=== PATIENT | male | born 1945 | race Caucasian/White ===

== ENCOUNTER 2017-06-20 11:58 | Outpatient (CLI) | payer MEDICARE ==
--- NOTE | 2017-06-20 15:20 | ULT ---
SCROTAL ULTRASOUND WITH COLOR AND SPECTRAL DOPPLER IMAGING AND VASCULAR DUPLEX: History: 71-year-old male with bulge in the right groin. FINDINGS: The right testes measures 3.8 x 2.5 x 3.4 cm. The left testes measures 3.7 x 2.3 x 3.1 cm. Epididyma l head regions appear unremarkable with a 0.2 x 0.3 cm epididymal head cyst. A small amount of bilat eral hydrocele fluid. In the left groin in the region of clinical concern, there is evidence of left inguinal hernia which does appear to at least partially contain bowel. This hernia does not extend into the scrotum. Vascular duplex with color and spectral doppler imaging demonstrates arterial end flow and venous ou tflow to both testes. No evidence of testicular torsion. No testicular mass. IMPRESSION: Small bilateral hydroceles. Very small incidental epididymal cyst. No intratesticular mass or testic ular torsion. Evidence for left inguinal hernia containing bowel. This might be more completely assessed with a follow up pelvic CT scan. POS: [facility]
== END 2017-06-20 11:59 | disposition home or self-care (01) ==
LOC: ULT 11:58
PROVIDERS: ATTEND Family Medicine
DX: K40.90 Unilateral inguinal hernia, without obstruction or gangrene, not specified as recurrent (principal); R01.1 Cardiac murmur, unspecified; I08.3 Combined rheumatic disorders of mitral, aortic and tricuspid valves; I35.0 Nonrheumatic aortic (valve) stenosis; N43.3 Hydrocele, unspecified; N50.3 Cyst of epididymis
CPT/HCPCS: 76870; 93306; 93976

== ENCOUNTER 2017-12-13 09:28 | Outpatient (CLI) | payer MEDICARE ==
[2017-12-13] MEDS ORDERED: ISOVUE-370 76%-LOCM 1 ML ONE (16:11)
== END 2017-12-13 09:29 | disposition home or self-care (01) ==
LOC: BICCT 09:28
PROVIDERS: ATTEND Thoracic Surgery (Cardiothoracic Vascular Surgery)
DX: I65.23 Occlusion and stenosis of bilateral carotid arteries (principal); I65.01 Occlusion and stenosis of right vertebral artery; I70.8 Atherosclerosis of other arteries; Z86.73 Personal history of transient ischemic attack (TIA), and cerebral infarction without residual deficits; Z87.81 Personal history of (healed) traumatic fracture
CPT/HCPCS: 70498

== ENCOUNTER 2017-12-25 06:11 | Inpatient (IN) | payer MEDICARE ==
[2017-12-24 15:05] VITALS: BMI 32.2
[2017-12-25] MEDS ORDERED: Protamine Sulfate 50 MG/5 ML VIAL ONE (06:43)
[2017-12-25] MEDS ORDERED: Heparin 5,000 UNITS/ML VIAL ONE (06:43)
[2017-12-25 06:51] LABS: Hemoglobin 13.2 g/dL (14.0-18.0); Mean Corpuscular HGB CONC 34.6 g/dL (32.0-36.0); Mean Corpuscular Hemoglobin 35.8 pg (27.0-31.0); Mean Platelet Volume 7.6 fL (7.4-10.4); Platelet Count 139 thou/uL (130-400); RBC Distribution Width 13.6 % (11.5-14.5); White Blood Cell (WBC) Count 6.1 thou/uL (4.8-10.8)
[2017-12-25] MEDS ORDERED: Fentanyl 250 MCG/5 ML VIAL ONE (06:56)
[2017-12-25 07:07] LABS: Anion Gap 16 mmol/L (10-20); Calc. Creatinine Clearance 83 mL/min (70-130); Calcium 9.4 mg/dL (7.8-10.44); Carbon Dioxide 23 mmol/L (23-31); Chloride 104 mmol/L (98-107); Estimated GFR-MDRD 71; Glucose 86 mg/dL (80-115); Potassium 4.7 mmol/L (3.5-5.1); Sodium 138 mmol/L (136-145)
[2017-12-25] MEDS ORDERED: CEFAZOLIN/Water 2 GM/20 ML SYRINGE ONE (07:12)
[2017-12-25] MEDS ORDERED: Fentanyl 100 MCG/2 ML VIAL ONE (07:41)
[2017-12-25] MEDS ORDERED: Ondansetron HCl/PF 4 MG/2 ML Vial IVP PRN (07:57)
[2017-12-25] MEDS ORDERED: Acetaminophen 325 MG TAB PO PRN (07:57)
[2017-12-25] MEDS ORDERED: HYDROcodone/Acetaminophen 5/325 mg Tablet PO PRN ×2 (07:57)
[2017-12-25] MEDS ORDERED: Polyethylene Glycol 3350 17 GM Packet PO PRN (08:01)
[2017-12-25 08:07] LABS: BUN (Urea Nitrogen) 13 mg/dL (8.4-25.7)
--- NOTE | 2017-12-25 08:54 | RAD ---
RADIOGRAPH CHEST 2 VIEWS: HISTORY: A 72-year-old male for preoperative evaluation. FINDINGS: There is no air space density, pulmonary edema, pleural effusion, pneumothorax, or cardiomegaly. The re are at least 2 compression fractures of the mid and lower thoracic spine, of indeterminate age. T here are multiple left lateral displaced rib fracture deformities which are nonacute, with associated chronic left pleural changes. There are also nonacute fractures of the left clavicle and left scapu la. IMPRESSION: 1. No acute cardiopulmonary findings. 2. Multiple nonacute fractures of the left clavicle and left ribs. 3. Compression fractures in the mid and lower thoracic spine, of indeterminate age. jn [] POS: [facility]
[2017-12-25] MEDS ORDERED: Lisinopril 10 MG TAB PO SCH (09:00)
--- NOTE | 2017-12-25 11:37 | EKG ---
Test Reason : PREOP Blood Pressure : / mmHG Vent. Rate : 065 BPM Atrial Rate : 065 BPM P-R Int : 194 ms QRS Dur : 134 ms QT Int : 448 ms P-R-T Axes : 021 006 -10 degrees QTc Int : 465 ms Sinus rhythm with marked sinus arrhythmia and PAC's Right bundle branch block Lateral infarct , age undetermined Nonspecific ST-T changes Abnormal ECG No previous ECGs available Confirmed by DR. Dai YEBOAH ([id number]) on 12/25/2017 11:36:34 AM Referred By: MANOHAR Hernandez Confirmed By:DR. Dai YEBOAH
--- NOTE | 2017-12-25 12:53 | OP ---
DATE OF PROCEDURE: 12/25/2017 PROCEDURE PERFORMED: Right carotid endarterectomy. PREOPERATIVE DIAGNOSIS: Right carotid stenosis. POSTOPERATIVE DIAGNOSIS: Right carotid stenosis. SURGEON: Dillon Sanches M.D. ANESTHESIA: General endotracheal anesthesia. INDICATIONS: The patient is a 72-year-old man with coronary artery disease with asymptomatic carotid bruits. He was found to have modest left carotid stenosis, but a high grade right carotid suggested by ultrasonography and corroborated by CT angiography. He is now taken to the operating room for [facility] carotid endarterectomy. FINDINGS: I extensively calcified plaque throughout the cervical common carotid and extending 3 or 4 cm into the internal carotid with serial subtotal stenoses at the bulb and internal carotid and pers istent bleeding from the endarterectomy bed itself. Preshunt clamp time was 9 minutes. The shunt ti me was 34 minutes and post-shunt clamp time was 3 minutes. NARRATIVE REPORT: After informed consent was obtained, the patient was taken to the operating room a nd placed in supine position on the operating table. After the induction of general anesthesia, the patient's neck was extended and rotated towards the left. His right neck was then prepped and draped in sterile fashion. An oblique incision was made in the skin crease on the right neck using a scalp el and electrocautery. The dissection was carried through the platysma and anteromedial to the keane ocleidomastoid muscle and internal jugular vein. The common carotid artery was dissected free from t he sheath and the vagus nerve and looped with a vessel loop. The facial vein was ligated and divided . The dissection was carried distally because of bradycardia and lidocaine was infiltrated into the perivascular tissues at the bulb with relief of that bradycardia. The dissection was then carried on beyond the level of the hypoglossal nerve and digastric muscle, ansa cervicalis and sling vessels we re ligated and divided. The internal carotid was a large vessel with extensively calcified plaque ex tending 3-4 cm perhaps even more beyond the carotid bifurcation. When adequate exposure had been ach ieved, the patient was heparinized. The superior thyroidal and external carotid artery was looped an d mass with a vessel loop. After adequate circulation time of heparin, the internal carotid, common carotid at a relative soft spot and the external carotid systems were sequentially occluded. A longi tudinal arteriotomy was made in the distal common carotid artery and extended proximally and distally with Feliz scissors. An endarterectomy plane was developed at the bulb and the plaque was transecte d at the common carotid level. Plaque was everted from the external carotid system and then broken o ff distally in the internal carotid. The distal feather was tailored, forcefully irrigated and then tailored again. The proximal transection point was inspected. Verrucous plaque was crushed and debr ided from the common carotid and again irrigated and the intraluminal carotid shunt was inserted firs t distally in the internal carotid and proximally in the common carotid aspirating on the side port o f the shunt for allowing antegrade flow through it into the internal carotid system. A Ronald shunt c lamp was used to control backbleeding around the internal carotid limb of the shunt as well as to fac ilitate retention of this shunt intraluminally as the arteriotomy required was rather long. The bulb was further dissected out and clip applied what appeared to represent a small branch coming off of t he bulb, but there was persistent bleeding from what appeared ultimately to represent merely endarter ectomy bed at that level. This resulted in persistent oozing of blood throughout the case. The enda rterectomy bed was then serially inspected, debrided and forcefully irrigated until no more mobile de bris remained. The arteriotomy was then sewn from either apex with running 6-0 Prolene suture with a bout a centimeter of arteriotomy left so at the distal common carotid level. The shunt was clamped a nd removed and vascular control reestablished on the internal carotid at its origin and on the common carotid with vessel loops. The remaining arteriotomy was sewn. The vessels are forward and backble d to allow for flushing of any air or residual debris at the arteriotomy or into the external carotid system. The suture line was secured in antegrade flow into the external carotid and then into the i nternal carotid. One bleeding point along the suture line near the bulb was easily controlled with a [id number] Prolene suture. The wound was then inspected and packed off and after few minutes p acking removed and it appeared that hemostasis would be adequate without the reversal of heparin. To pical hemostatic agents were applied and the wound was again packed off. After few minutes, the pack ing was removed along with the Surgicel and hemostasis appeared to be adequate. The platysma was the n reapproximated with running 3-0 Vicryl and the skin was closed with a running 4-0 Vicryl, subcuticu lar suture and Steri-Strips. The wound was dressed. The patient is awake and extubated in the opera ting room and taken to the recovery area in stable condition and moving all extremities to command.
[2017-12-25] MEDS ORDERED: Glycopyrrolate 0.2 MG/ML 5 ML SYRINGE ONE (13:18)
[2017-12-25] MEDS ORDERED: Lidocaine 1% PF 5 ML VIAL ONE (13:18)
[2017-12-25] MEDS ORDERED: PHENYLEPHRINE-NS 100 MCG/ML 10 ML SYRINGE ONE (13:18)
[2017-12-25] MEDS ORDERED: Heparin 10,000 UNITS/ 10 ML VIAL ONE (13:18)
[2017-12-25] MEDS ORDERED: ePHEDrine/0.9% NaCl/PF SYRINGE 50 mg/10 ml ONE (13:18)
[2017-12-25] MEDS ORDERED: Esmolol 100 MG/10 ML VIAL ONE (13:18)
[2017-12-25] MEDS ORDERED: PROPOFOL 200 MG/20 ML VIAL ONE (13:18)
[2017-12-25] MEDS: Sodium Chloride 0.9% 1,000 ML IV SCH (15:32)
[2017-12-25] MEDS: hydrALAZINE 20 MG/ML VIAL SLOW IVP PRN ×2 (15:32→23:48)
[2017-12-25] MEDS ORDERED: Aspirin 81 mg Enteric Coated Tablet PO SCH (21:00)
[2017-12-25] MEDS ORDERED: Lisinopril 5 MG TAB PO SCH (21:00)
[2017-12-25] MEDS ORDERED: Finasteride 5 MG TAB PO SCH (21:00)
[2017-12-25] MEDS ORDERED: Divalproex Sodium DR 500 MG TAB PO SCH (21:00)
[2017-12-25] MEDS ORDERED: Cyanocobalamin (Vitamin B-12) 1,000 MCG TAB PO SCH (21:00)
[2017-12-25] MEDS ORDERED: Amlodipine 10 MG TAB PO SCH (21:00)
[2017-12-25] MEDS ORDERED: Ubidecarenone 50 MG CAP PO SCH (21:00)
[2017-12-25] MEDS ORDERED: Atorvastatin Calcium 40 MG TAB PO SCH (21:00)
[2017-12-25] MEDS ORDERED: Tamsulosin HCl 0.4 MG CAP PO SCH (21:00)
[2017-12-25] MEDS ORDERED: pyridOXINE 50 MG (B6) TAB PO SCH (21:00)
[2017-12-25 23:49] VITALS: BP 145/48
[2017-12-26] MEDS: Sodium Chloride 0.9% 1,000 ML IV SCH (01:45)
[2017-12-26 04:42] VITALS: TEMP 98
--- NOTE | 2017-12-26 06:48 | DIS ---
DATE OF ADMISSION: 12/25/2017 DATE OF DISCHARGE: 12/26/2017 PRINCIPAL DIAGNOSIS: Right carotid stenosis. PROCEDURE PERFORMED: Right carotid endarterectomy. HISTORY OF PRESENT ILLNESS AND HOSPITAL COURSE: The patient is a 72-year-old smoker with coronary ar nino disease who was found to have carotid disease on the evaluation of asymptomatic carotid bruits. Ultrasonography suggested high grade right carotid stenosis and more modest disease on the left. CT angiography corroborated that he was admitted for elective right carotid endarterectomy. The findin gs at the time of surgery included heavy calcification of the common carotid artery and of the inclusion intern al carotid artery extending 3 to 4 cm beyond the carotid bifurcation. The hard plaque was associated with multiple subtotal stenoses in the bulb and internal carotid artery. He had an uneventful posto p recovery initially in the recovery area and then overnight in the ICU. Today on postoperative day #1, he is neurologically intact, moving all extremities normally. His tongue is midline. His voice is normal. He is breathing and swallowing without any difficulty. There is no significant swelling associated with his incision, which is clean, dry, and intact. His blood pressure has been under tea quate control. He is now being discharged home with prescription for Vicodin as needed for pain and resume all of his home medications, which include an aspirin a day. I will plan on seeing him in the office in about 2 to 3 weeks for a wound check and we will enroll him in lifelong annual surveillanc e.
[2017-12-26] MEDS ORDERED: Folic Acid 1 MG TAB PO SCH (21:00)
== END 2017-12-26 10:07 | disposition home or self-care (01) | DRG 39 ==
LOC: SURG A 06:11 → CCU 13:35
PROVIDERS: ADMIT Thoracic Surgery (Cardiothoracic Vascular Surgery); ATTEND Thoracic Surgery (Cardiothoracic Vascular Surgery)
PROC: 03CH0ZZ Extirpation of Matter from Right Common Carotid Artery, Open Approach (ICD-10-PCS; principal; 2017-12-25)
PROC: 03CK0ZZ Extirpation of Matter from Right Internal Carotid Artery, Open Approach (ICD-10-PCS; 2017-12-25)
DX: I65.21 Occlusion and stenosis of right carotid artery (principal); F17.210 Nicotine dependence, cigarettes, uncomplicated; Z79.899 Other long term (current) drug therapy; Z79.82 Long term (current) use of aspirin; I25.10 Atherosclerotic heart disease of native coronary artery without angina pectoris; I10 Essential (primary) hypertension; J43.9 Emphysema, unspecified; G40.909 Epilepsy, unspecified, not intractable, without status epilepticus
CPT/HCPCS: 71046; 80048; 85027; 86850; 86900; 86901; 93005; 93010; 94640; A4216; J0360; J1642; J1644; J2001; J2405; J2704; J2720; J3010; J7620

== ENCOUNTER 2018-03-03 13:14 | Inpatient (IN) | payer MEDICARE ==
[~2018-03-03 13:14] MED LIST: ISOVUE-370 76%-LOCM 1 ML ONE
[2018-03-03 13:56] LABS: Hemoglobin 11.8 g/dL (14.0-18.0); Mean Corpuscular HGB CONC 35.2 g/dL (32.0-36.0); Mean Corpuscular Hemoglobin 33.2 pg (27.0-31.0); Mean Corpuscular Volume 94.3 fL (78.0-98.0); RBC Distribution Width 14.9 % (11.5-14.5); Red Blood Cell (RBC) Count 3.57 mill/uL (4.70-6.10); White Blood Cell (WBC) Count 5.6 thou/uL (4.8-10.8)
[2018-03-03 14:05] LABS: INR-International Normal Ratio 1.2
[2018-03-03 14:08] LABS: Bilirubin Negative (Negative); Blood, Urine Small (Negative); Clarity CLEAR (Clear); Glucose, Urine (Dipstick) Negative (Negative); Leukocyte Negative (Negative); Nitrite Negative (Negative); Protein, Urine (Dipstick) 100 mg/dL (Neg-Trace); Specific Gravity, Urine 1.006 (1.002-1.036); pH, Urine 6.5 (5.0-9.0)
[2018-03-03 14:10] LABS: Bacteria/HPF None Seen HPF (None Seen); Hyaline Casts/LPF 0-3 HYALINE CAST LPF (0-3 Hyaline); Pathc Cast-AUWi Flag 0.43 (0-2.49); RBC/HPF 0-3 HPF (0-3); Squamous Epithelial 0-3 HPF (0-3); WBC/HPF None Seen HPF (0-3)
[2018-03-03 14:15] LABS: ALT (SGPT) 13 U/L (8-55); AST (SGOT) 54 U/L (5-34); Albumin 3.6 g/dL (3.4-4.8); Alkaline Phosphatase 70 U/L (40-150); Anion Gap 17 mmol/L (10-20); BUN (Urea Nitrogen) 19 mg/dL (8.4-25.7); Bilirubin, Total 0.5 mg/dL (0.2-1.2); Calc. Creatinine Clearance 0 mL/min (70-130); Carbon Dioxide 22 mmol/L (23-31); Chloride 88 mmol/L (98-107); Estimated GFR-MDRD 79; Glucose 120 mg/dL (80-115); Potassium 4.8 mmol/L (3.5-5.1); Protein, Total 8.6 g/dL (5.8-8.1); Sodium 122 mmol/L (136-145)
[2018-03-03 14:17] LABS: CKMB 2.7 ng/mL (0-6.6); Troponin I 0.054 ng/mL (< 0.028)
[2018-03-03 14:18] LABS: Calcium 12.1 mg/dL (7.8-10.44)
[2018-03-03 14:25] LABS: #Lymphocytes 0.7 thou/uL (1.20-3.40); #Monocytes 0.5 thou/uL (0.11-0.59); #Neutrophils 4.4 thou/uL (1.40-6.50); %Basophils 0.1 % (0.0-1.0); %Eosinophils 0.3 % (0.0-10.0); %Lymphocytes 13.2 % (21.0-51.0); %Monocytes 9.3 % (0.0-10.0); %Neutrophils 77.1 % (42.0-75.0); Anisocytosis SLIGHT = 6-15 cells (100X) (0-5/hpf); MDiff Complete? YES; Mean Platelet Volume 6.8 fL (7.4-10.4); PLT Morphology Comment Appears Decreased; Platelet Count 103 thou/uL (130-400); Polychromasia SLIGHT = 2-3 cells (100X) (0-2/hpf)
--- NOTE | 2018-03-03 14:34 | RAD ---
FRONTAL VIEW CHEST: Date: 03/03/18 COMPARISON: 12/25/17. CLINICAL HISTORY: Weakness, dyspnea. FINDINGS: Mild eventration of left hemidiaphragm present with blunting of the left lateral costophrenic sulcus. There is remote appearing deformity of the left lateral chest wall, similar appearing. Right lung re veals mild interstitial prominence. Cardiomediastinal silhouette is stable. IMPRESSION: 1. Chronic post-traumatic deformity of the left chest with elevation of left hemidiaphragm. 2. No new lobar consolidation. POS: [facility]
--- NOTE | 2018-03-03 15:09 | CT ---
CTA THORAX UTILIZING IV CONTRAST AND 3D REFORMATTED IMAGING: INDICATIONS: A 72-year-old male with shortness of breath and hypoxemia. COMPARISON: 01/28/2018 FINDINGS: No central or segmental pulmonary embolus is present. There is stable scattered emphysema. There is fluid and debris seen within the bronchi of the right lower lobe, with some tree-in-bud nodu lar opacities seen within the medial aspect of the right lower lobe. No pleural effusion is evident. No pneumothorax is demonstrated. There are scattered vascular calcifications in the coronary arter ies and thoracic aorta. The visualized upper abdomen is unremarkable for acute abnormality. There is diffuse osteopenia. There is a stable wedge compression abnormality involving T11, T7 and T 8. There has been interval development of an acute wedge compression abnormality involving T12. Thi s was not present on the comparison exam. There are worsening patchy areas of osteolysis seen throug hout the thoracic spine, which have progressed from the prior exam. There is a destructive osteolyti c lesion involving the anterolateral right seventh rib. There are numerous other scattered areas of focal osteolysis involving the ribs bilaterally. There is a healed deformity involving the left ches t wall, which is stable. There is a healed deformity involving the left clavicle. IMPRESSION: 1. No central or segmental pulmonary embolus demonstrated. 2. Debris seen within the bronchi of the right lower lobe, with tree-in-bud nodularity, suspicious f or changes of aspiration or a bronchitis. 3. Numerous osteolytic lesions involving the ribs and thoracolumbar spine, which have progressed fro January 2018, suspicious for metastatic disease versus myeloma. There is a new pathologic fracture in volving the T12 level. Compression abnormalities involving T11, T8, and T7 appear similar appearing. CODE T POS: [facility]
[2018-03-03] MEDS ORDERED: Aspirin 325 MG TAB ONE (15:14)
[2018-03-03] MEDS ORDERED: Piperacillin/Tazobactam 4.5 GM VIAL ONE (15:34)
[2018-03-03 17:14] LABS: Magnesium 1.5 mg/dL (1.6-2.6); Phosphorus 3.7 mg/dL (2.3-4.7)
[2018-03-03 17:34] LABS: Troponin I 0.058 ng/mL (< 0.028)
[2018-03-03] MEDS ORDERED: Sodium Chloride 0.9% 1,000 ML IV SCH (17:48)
[2018-03-03] MEDS ORDERED: Ondansetron ODT 4 MG TAB SL PRN (17:48)
[2018-03-03] MEDS ORDERED: Ondansetron HCl/PF 4 MG/2 ML Vial IVP PRN ×2 (17:48→20:42)
[2018-03-03] MEDS: Sodium Chloride 0.9% 1,000 ML IV SCH (19:58)
[2018-03-03 20:33] LABS: Troponin I 0.066 ng/mL (< 0.028)
[2018-03-03] MEDS ORDERED: Calcium Carbonate 500 MG ChewTAB PO PRN (20:42)
[2018-03-03] MEDS ORDERED: Ondansetron ODT 4 MG TAB PO PRN (20:42)
[2018-03-03] MEDS ORDERED: Milk Of Magnesia 30 ML UDCUP PO PRN (20:42)
[2018-03-03] MEDS ORDERED: Bisacodyl 10 MG SUPP PR PRN (20:42)
[2018-03-03] MEDS ORDERED: Acetaminophen 325 MG TAB PO PRN (20:42)
[2018-03-03] MEDS ORDERED: Nitroglycerin 0.4 MG TAB (25 Tab Bottle) PO PRN (20:42)
[2018-03-03] MEDS ORDERED: cloNIDine 0.1 MG TAB PO PRN (20:57)
[2018-03-03] MEDS ORDERED: hydrALAZINE 20 MG/ML VIAL SLOW IVP PRN (20:57)
[2018-03-03] MEDS ORDERED: Tamsulosin HCl 0.4 MG CAP PO SCH (21:00)
[2018-03-03 21:56] LABS: Anion Gap 16 mmol/L (10-20); BUN (Urea Nitrogen) 14 mg/dL (8.4-25.7); Calc. Creatinine Clearance 86 mL/min (70-130); Calcium 11.5 mg/dL (7.8-10.44); Carbon Dioxide 23 mmol/L (23-31); Chloride 92 mmol/L (98-107); Estimated GFR-MDRD Greater than 90; Glucose 79 mg/dL (80-115); Potassium 4.9 mmol/L (3.5-5.1); Sodium 126 mmol/L (136-145)
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
[2018-03-03] MEDS ORDERED: Piperacillin/Tazobactam 4.5 GM in Sodium Chloride 0.9% 100 ML IVPB SCH (22:00)
[2018-03-03] MEDS: Piperacillin/Tazobactam 3.375 GM in Sodium Chloride 0.9% 100 ML IVPB SCH (22:13)
[2018-03-03] MEDS: pyridOXINE 50 MG (B6) TAB PO SCH (22:36)
[2018-03-03] MEDS: Divalproex Sodium DR 500 MG TAB PO SCH (22:37)
[2018-03-03] MEDS: Folic Acid 1 MG TAB PO SCH (22:38)
[2018-03-03] MEDS: Senokot S 8.6-50 MG TAB PO SCH (22:38)
[2018-03-03] MEDS: Famotidine 20 MG TAB PO SCH (22:38)
[2018-03-03] MEDS: Atorvastatin Calcium 40 MG TAB PO SCH (22:38)
[2018-03-03] MEDS: Heparin 5,000 UNITS/ML VIAL SC SCH (22:38)
[2018-03-03] MEDS: Ubidecarenone 50 MG CAP PO SCH (22:38)
[2018-03-03] MEDS: Finasteride 5 MG TAB PO SCH (22:38)
[2018-03-03] MEDS: HYDROcodone/Acetaminophen 5/325 mg Tablet PO PRN (23:12)
--- NOTE | 2018-03-04 02:50 | CON ---
DATE OF CONSULTATION: 03/03/2018 NEPHROLOGY CONSULTATION CONSULTING PHYSICIAN: Dr. Robison. REASON FOR CONSULTATION: Hyponatremia and hypercalcemia. REASON FOR ADMISSION: Near syncope. HISTORY OF PRESENT ILLNESS: This is a 72-year-old male with history of seizure disorder, hyperlipide shahrzad, hypertension, came to the hospital with weakness. Patient has been having falls recently and in continence and was evaluated today at the ER. Patient was feeling lightheaded. No history of any na usea, vomiting, diarrhea. Patient was found to have sodium of 122. His last sodium was 125 a month ago with the ER visit. He also was found to have hypercalcemia of 12.1. Nephrology is consulted. Alem fuentes is a poor historian. No nausea or vomiting reported. No fever or chills. No chest pain, pal pitation. PAST MEDICAL HISTORY: Positive for hypertension, hyperlipidemia, seizure disorder, carotid stenosis , BPH, and asthma PAST SURGICAL HISTORY: Shoulder surgery, knee surgery, carotid endarterectomy. HOME MEDICATIONS: Include aspirin, coenzyme Q10, potassium, divalproex, tamsulosin, atorvastatin, am lodipine, finasteride, lisinopril, ____, ProAir, hydrocodone, acetaminophen. ALLERGIES: No known drug allergies. SOCIAL HISTORY: No smoking, alcohol, or illicit drug abuse reported. FAMILY HISTORY: No history of any kidney disease. REVIEW OF SYSTEMS: The following complete review of systems was negative, unless otherwise mentioned in the HPI or below: Constitutional: Weight loss or gain, ability to conduct usual activities. Sk in: Rash, itching. Eyes: Double vision, pain. ENT/Mouth: Nose bleeding, neck stiffness, pain, te nderness. Cardiovascular: Palpitations, dyspnea on exertion, orthopnea. Respiratory: Shortness of breath, wheezing, cough, hemoptysis, fever, or night sweats. Gastrointestinal: Poor appetite, abdo tatum pain, heartburn, nausea, vomiting, constipation, or diarrhea. Genitourinary: Urgency, frequen cy, dysuria, nocturia. Musculoskeletal: Pain, swelling. Neurologic/Psychiatric: Anxiety, depressi on. Allergy/Immunologic: Skin rash, bleeding tendency. PHYSICAL EXAMINATION: GENERAL: Shows elderly male in no apparent distress. VITAL SIGNS: Temperature 98.7, pulse 108, respiratory rate 17, blood pressure 143/54. HEENT: Atraumatic, normocephalic. Oral mucosa dry. NECK: Supple, no masses. CARDIOVASCULAR: S1, S2 heard. Rate and rhythm regular. RESPIRATORY: Clear. GI: Abdomen is soft. MUSCULOSKELETAL: There is no edema. DERMATOLOGIC: No skin rash. NEUROLOGIC: He is awake, alert, cooperative, pleasant. PSYCHIATRIC: Not assessed. LABORATORY DATA: Hemoglobin is 11.8. Sodium 122, potassium 4.8, BUN is 19, creatinine is 0.9. PTH is 5.5. ASSESSMENT: 1. Hyponatremia most likely syndrome of inappropriate antidiuretic hormone secretion, check urine os molality and urine sodium. Agree with IV hydration for now. We will recheck sodium at 9:00 p.m. tociara gonzalez. 2. Metabolic acidosis. 3. Hypercalcemia. Agree with IV hydration and we will also consider calcitonin. 4. PTH level is low. Check vitamin D level and PTH-related peptide. 5. Anemia, mild. 6. Hypertension, stable. PLAN: Plan is to continue IV hydration. We will add calcitonin for hypercalcemia if needed and we w ill give tolvaptan if SIADH is established currently plan is to hydrate given history. Recheck urine studies. We will recommend age appropriate cancer screening. Thank you for the consult. We will follow. Plan discussed with Dr. Robison.
[2018-03-04] MEDS: Piperacillin/Tazobactam 3.375 GM in Sodium Chloride 0.9% 100 ML IVPB SCH ×3 (03:09→16:02)
[2018-03-04 04:46] LABS: #Lymphocytes 0.8 thou/uL (1.20-3.40); #Monocytes 0.6 thou/uL (0.11-0.59); #Neutrophils 3.5 thou/uL (1.40-6.50); %Basophils 0.4 % (0.0-1.0); %Eosinophils 0.3 % (0.0-10.0); %Lymphocytes 16.8 % (21.0-51.0); %Monocytes 12.8 % (0.0-10.0); %Neutrophils 69.7 % (42.0-75.0); Hemoglobin 9.6 g/dL (14.0-18.0); Mean Corpuscular HGB CONC 35.9 g/dL (32.0-36.0); Mean Corpuscular Hemoglobin 33.9 pg (27.0-31.0); Mean Corpuscular Volume 94.4 fL (78.0-98.0); Mean Platelet Volume 7.1 fL (7.4-10.4); Platelet Count 89 thou/uL (130-400); RBC Distribution Width 14.8 % (11.5-14.5); Red Blood Cell (RBC) Count 2.82 mill/uL (4.70-6.10)
[2018-03-04 05:14] LABS: Anion Gap 15 mmol/L (10-20); BUN (Urea Nitrogen) 15 mg/dL (8.4-25.7); Calc. Creatinine Clearance 77 mL/min (70-130); Calcium 11.3 mg/dL (7.8-10.44); Carbon Dioxide 24 mmol/L (23-31); Chloride 94 mmol/L (98-107); Estimated GFR-MDRD 81; Glucose 80 mg/dL (80-115); Potassium 4.2 mmol/L (3.5-5.1); Sodium 129 mmol/L (136-145)
[2018-03-04] MEDS ORDERED: Polyethylene Glycol 3350 17 GM Packet PO SCH (09:00)
[2018-03-04] MEDS: Famotidine 20 MG TAB PO SCH (09:05)
[2018-03-04] MEDS: Aspirin 81 mg Enteric Coated Tablet PO SCH (09:06)
[2018-03-04] MEDS: Heparin 5,000 UNITS/ML VIAL SC SCH ×2 (09:07→21:10)
[2018-03-04] MEDS: Senokot S 8.6-50 MG TAB PO SCH ×2 (09:08→21:09)
[2018-03-04 09:23] LABS: Ref Lab Test Ordered PTH RELATED PEPTIDE; Reference Lab Name LABCORP
[2018-03-04] MEDS: Sodium Chloride 0.9% 1,000 ML IV SCH ×2 (09:35→16:02)
[2018-03-04 09:36] LABS: Sodium 129 mmol/L (136-145)
--- NOTE | 2018-03-04 09:59 | RAD ---
ABDOMEN/KUB: Indication: Urinary incontinence. Constipation. FINDINGS: There is moderate retained fecal material in the colon. The lung bases reveal no consolidation. There is elevation of the left hemidiaphragm. Limited evaluation for free air by supine positioning. There is osseous degenerative change. IMPRESSION: Moderate retained fecal material throughout the colon. POS: [facility]
[2018-03-04] MEDS ORDERED: Vancomycin HCl 1 GM in Premix Bag 1 BAG IVPB SCH (12:00)
[2018-03-04] MEDS ORDERED: Lorazepam 2 MG/ML VIAL SLOW IVP SCH (12:00)
--- NOTE | 2018-03-04 12:05 | PRG ---
DATE OF SERVICE: 03/04/2018 SUBJECTIVE: Patient was seen and examined at bedside and overnight events noted. Patient denies any shortness of breath or chest pain or palpitation. No history of nausea or vomiting or diarrhea or fever or chills or cramps. OBJECTIVE: GENERAL: This is a well-built male in no apparent distress. VITAL SIGNS: Temperature 98.6, pulse 92, respirations 18, blood pressure 132/49. HEENT: Atraumatic, normocephalic. Oral mucosa is moist. NECK: Supple. CARDIOVASCULAR: S1 and S2 heard. Rate and rhythm regular. RESPIRATORY: Clear to auscultation. GASTROINTESTINAL: Abdomen is soft. MUSCULOSKELETAL: No tenderness. No edema. DERMATOLOGIC: No skin rash. NEUROLOGIC: Alert and awake and oriented x3. No focal neurologic deficits. Moving all the extremit ies. PSYCHIATRIC: Mood and affect normal. LABORATORY DATA: Potassium is 4.2, sodium 129, creatinine 0.9, calcium is 11.2. ASSESSMENT AND PLAN: 1. Hyponatremia, responding to IV fluids, suggesting hypovolemia even though clinical data shows asc ites. Patient had good correction level less than 24 hours, correction of 7 mEq per liter in less th an 24 hours. Plan is to stop the intravenous fluids at this point and check sodium at 24-hour monito r and we will make a clinical decision at that point. 2. Metabolic acidosis. 3. Hypercalcemia, better with IV hydration, but have to stop, because of the correction of hyponatre shahrzad. 4. Possible metastatic disease with bone metastasis. Follow up with Oncology. 6. Hypertension, stable. 7. We will recheck labs and we will decide based on the results.
[2018-03-04 13:25] LABS: Anion Gap 18 mmol/L (10-20); BUN (Urea Nitrogen) 17 mg/dL (8.4-25.7); Calc. Creatinine Clearance 58 mL/min (70-130); Calcium 11.5 mg/dL (7.8-10.44); Carbon Dioxide 20 mmol/L (23-31); Chloride 96 mmol/L (98-107); Estimated GFR-MDRD 59; Glucose 85 mg/dL (80-115); Potassium 4.6 mmol/L (3.5-5.1); Sodium 129 mmol/L (136-145)
[2018-03-04] MEDS: Vancomycin HCl 1.5 GM in Sodium Chloride 0.9% 250 ML 300 ML IVPB SCH (13:29)
--- NOTE | 2018-03-04 14:14 | PQF ---
CLINICAL DOCUMENTATION IMPROVEMENT CLARIFICATION FORM: ICD-10 Updated PLEASE DO AN ADDENDUM TO THE PROGRESS NOTE WITH ANY DOCUMENTATION UPDATES OR ADDITIONS AND CARRY THROUGH TO DC SUMMARY. THANK YOU. Date: 03/04/18 ATTN : DR. VILLALPANDO Please exercise your independent, professional judgment in responding to the clarification form. 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, 8% WEIGHT LOESS IN A FEW WEEKS." RISKS: ASPIRATION PNEUMONIA WORSENING WEAKNESS WITH DIZZINESS AND HYPONATREMIA TREATMENT: NUTRITIONAL SUPPLEMENTS DIETARY CONSULT SERIAL LABS TO MONITOR SODIUM AND MAGNESIUM PER DIETARY RECOMMENDATIONS Moderate Malnutrition (in acute illness) Energy Intake: <75% of estimated energy requirement for > 7 days Weight Loss: 1-2%/1 week; 5%/ 1 month; 7.5%/3 months Other: mild body fat loss; mild muscle mass loss; mild fluid accumulation; Severe Malnutrition (in acute illness) Energy Intake: < 50% of estimated energy requirement for > 5 days Weight Loss: >1-2%/1 week; >5%/1 month; >7.5%/3 months Other: moderate body fat loss; moderate muscle mass loss; moderate- severe fluid accumulation; 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 Moderate Malnutrition (in chronic illness) Energy Intake: <75% of estimated energy requirement for >1 month Weight Loss: 5%/1 month; 7.5%/3 months; 10%/6 months; 20%/1 year Other: mild body fat loss; mild muscle mass loss; mild fluid accumulation Severe Malnutrition (in chronic illness) Energy Intake: <75% of estimated energy requirement for >1 month Weight Loss: >5%/1 month; >7.5%/3 months; >10%/6 months; >20%/1 year Other: severe body fat loss; severe muscle mass loss; severe fluid accumulation ; 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 All Rights Reserved GINGER [email or web address] Office: [phone] [facility]
--- NOTE | 2018-03-04 14:53 | MRI ---
MRI LUMBAR SPINE WITHOUT CONTRAST: INDICATIONS: Urinary tract incontinence and low back pain. COMPARISON: Prior MRI lumbar spine dated 09/18/2004. TECHNIQUE: Multiplanar, multisequence MR images were obtained of the lumbar spine without IV contrast. Motion a rtifact limits image detail. FINDINGS: There is diffuse low signal intensity seen scattered within the sacrum, the lower thoracic spine, and the lumbar spine, consistent with diffuse osseous metastatic disease. There is an acute pathologic compression fracture involving the superior endplate of T12. There is chronic mild wedge compression abnormality of T11. Grade 1 anterolisthesis of L5 on S1 is stable. At L5-S1, there is a broad-based pseudo-bulge with facet hypertrophy, inducing moderate to severe rig ht and moderate left neural foraminal narrowing. The degree of neural foraminal narrowing is stable since 2004. At L4-L5, there is a broad-based bulge with facet hypertrophy, inducing moderate bilateral neural for aminal narrowing, which is stable. At L3-L4, there is a broad-based bulge with facet joint degenerative change without appreciable centr al canal narrowing but mild neural foraminal narrowing, which is stable. At L2-L3, there is a broad-based bulge, inducing mild bilateral neural foraminal narrowing, which is stable. At L1-L2, there is no appreciable central canal or neural foraminal narrowing. T12-L1: There is no appreciable central canal or neural foraminal narrowing. T11-T12: There is no appreciable neural foraminal narrowing. IMPRESSION: 1. Findings of diffuse metastatic disease involving the thoracolumbosacral spine with an acute wedge compression abnormality involving T12. 2. Stable multilevel neural foraminal narrowing. POS: [facility]
[2018-03-04 15:03] LABS: Sodium 129 mmol/L (136-145)
--- NOTE | 2018-03-04 15:10 | PDOC.PN ---
- Subjective Encounter Start Date: 03/04/18 Encounter Start Time: 10:30 Patient seen and examined for multiple issues. Feels better. No new focal deficits. No new complaints. No overnight events - Objective Resuscitation Status: Resuscitation Status FULL:Full Resuscitation MAR Reviewed: Yes Vital Signs & Weight: Vital Signs (12 hours) Temp Pulse Resp BP Pulse Ox 03/04/18 14:22 95 03/04/18 14:21 103 H 16 99 03/04/18 11:34 98.1 F 107 H 19 120/45 L 97 03/04/18 10:32 83 16 95 03/04/18 08:00 98.6 F 83 16 94 L 03/04/18 07:35 98.6 F 96 20 122/49 L 95 03/04/18 07:24 114 H 18 97 03/04/18 03:55 98.4 F 99 17 115/53 L 95 Weight Admit Weight 160 lb Weight 160 lb I&O: 03/03/18 03/04/18 03/05/18 06:59 06:59 06:59 Intake Total 876 Output Total 500 Balance 376 Result Diagrams: 03/04/18 03:30 03/04/18 14:34 Additional Labs: Microbiology 03/03/18 15:45 Venous blood - Left Hand Blood Culture - Preliminary Staphylococcus species 03/03/18 15:40 Venous blood - Left Arm Blood Culture - Preliminary Gram Positive Cocci 03/03/18 13:54 Urine voided Urine Culture - Preliminary NO GROWTH AT 12 HOURS Radiology Reviewed by me: Yes (KUB - fecal retention) EKG Reviewed by me: Yes (Tele SR) Phys Exam - Physical Examination Constitutional: NAD (at rest, Still has back pain) HEENT: PERRLA Neck: no JVD Respiratory: no wheezing Bibasilar rales with scat rhonchi, Symmetrical, No accessory muscle use Cardiovascular: RRR, no rub No heaves/pulsations Gastrointestinal: soft, non-tender, no distention, positive bowel sounds Musculoskeletal: no edema Neurological: moves all 4 limbs No new focal deficits. Psychiatric: normal affect, A&O x 3 Skin: no rash Dx/Plan - Plan plan discussed w/ family, continue antibiotics, psychologist social, speech therapy , respiratory therapy, DVT proph w/heparin, DVT proph w/SCDs IMPRESSION: 1. Generalized weakness with intractable back pain with loss of bladder control and difficulty ambulating. 2. Staph bacteremia 3. Electrolyte imbalance -severe hyponatremia and hypercalcemia. 4. Aspiration pneumonia. on Zosyn 5. Urinary incontinence x 1 week, multifactorial, suspected neurogenic. 6. Elevated troponins, probably secondary to demand ischemia. 7. 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 There is also a new pathologic fracture at T12 with compression abnormalities involving T12, T8, and T7 which appears similar to previous imaging. 8. Chronic anemia. 9. Hypertension. 10. Hyperlipidemia. 11. Seizure disorder - on Depakote 12. Decubitus ulcer, stage 2 over the gluteal region present on admission. 13. Thrombocytopenia. 14. Carotid stenosis status post recent right carotid endarterectomy. 15. Coronary artery disease, status post recent cardiac catheterization by Dr. Caballero. 16. Suspected chronic obstructive pulmonary disease. 17. Chronic pain syndrome on hydrocodone. 18. Moderate Protein Calorie Malnutrition. 19. Fecal impaction PLAN: * Cont Zosyn * Add Vancomycin * Cont Senokot-S and Miralax * PT/OT/ST * Await Oncology/NSG input * Consult ID * IVF dced due to sodium level of 129 from 122 * MRI pend * Change Flomax to BID (home dose) Review of Systems - Review of Systems Cardiovascular: negative: chest pain, palpitations, orthopnea, paroxysmal nocturnal dyspnea, edema, light headedness, other Gastrointestinal: negative: Nausea, Vomiting, Abdominal Pain, Diarrhea, Constipation, Melena, Hematochezia, Other - Medications/Allergies Allergies/Adverse Reactions: Allergies Allergy/AdvReac Type Severity Reaction Status Date / Time No Known Allergies Allergy Verified 03/03/18 19:17 Medications: Current Medications Acetaminophen (Tylenol) 650 mg PO Q4H PRN PRN Reason: Headache/Fever or Pain Hydrocodone Bitart/Acetaminophen ([place] 5/325) 1 tab PO Q4H PRN PRN Reason: Moderate Pain (4-6) Last Admin: 03/03/18 23:12 Dose: 1 tab Albuterol/Ipratropium (Duoneb) 3 ml NEB [id number] ESTLEA Last Admin: 03/04/18 14:21 Dose: 3 ml Albuterol/Ipratropium (Duoneb) 3 ml NEB Q2H PRN PRN Reason: SOB &/or Wheezing Aspirin (Ecotrin) 81 mg PO DAILY [facility] Last Admin: 03/04/18 09:06 Dose: 81 mg Atorvastatin Calcium (Lipitor) 40 mg PO QPM [facility] Last Admin: 03/03/18 22:38 Dose: 40 mg Bisacodyl (Dulcolax) 10 mg TN Q24H PRN PRN Reason: Constipation Calcium Carbonate (Tums) 1,000 mg PO Q4H PRN PRN Reason: Heartburn or Indigestion Clonidine (Catapres) 0.1 mg PO Q4H PRN PRN Reason: Systolic BP > 180 Coenzyme Q10 (Coenzyme Q10) 100 mg PO QPM [facility] Last Admin: 03/03/18 22:38 Dose: 100 mg Diltiazem HCl (Cardizem) 30 mg PO ACHS [facility] Last Admin: 03/04/18 13:29 Dose: 30 mg Divalproex Sodium (Depakote) 1,500 mg PO QPM [facility] Last Admin: 03/03/18 22:37 Dose: 1,500 mg Famotidine (Pepcid) 20 mg PO BID [facility] Last Admin: 03/04/18 09:05 Dose: 20 mg Finasteride (Proscar) 5 mg PO QPM [facility] Last Admin: 03/03/18 22:38 Dose: 5 mg Folic Acid (Folvite) 1 mg PO QPM [facility] Last Admin: 03/03/18 22:38 Dose: 1 mg Heparin Sodium (Porcine) (Heparin) 5,000 units SC BID [facility] Last Admin: 03/04/18 09:07 Dose: Not Given Hydralazine HCl (Apresoline) 5 mg SLOW IVP Q4H PRN PRN Reason: SBP Greater Than 180 Piperacillin Sod/Tazobactam (Sod 3.375 gm/ Sodium Chloride) 100 mls @ 200 mls/ hr IVPB 0300,0900,1500,2100 [facility] Last Admin: 03/04/18 09:08 Dose: 100 mls Vancomycin HCl 1.5 gm/ Sodium (Chloride) 300 mls @ 200 mls/hr IVPB 1400 [facility] Last Admin: 03/04/18 13:29 Dose: 300 mls Magnesium Hydroxide (Milk Of Magnesium) 30 ml PO DAILYPRN PRN PRN Reason: Constipation Miscellaneous Medication (Pharmacy To Dose) 1 each IVPB ASDIR [facility] Nitroglycerin (Nitrostat) 0.4 mg PO Q5MIN PRN PRN Reason: Chest Pain Ondansetron HCl (Zofran Odt) 4 mg PO Q6H PRN PRN Reason: Nausea/Vomiting Ondansetron HCl (Zofran) 4 mg IVP Q6H PRN PRN Reason: Nausea/Vomiting Polyethylene Glycol (Miralax) 17 gm PO DAILY [facility] Last Admin: 03/04/18 09:08 Dose: Not Given Pyridoxine HCl (Vitamin B 6) 100 mg PO QPM [facility] Last Admin: 03/03/18 22:36 Dose: 100 mg Senna/Docusate Sodium (Senokot S) 2 tab PO BID [facility] Last Admin: 03/04/18 09:08 Dose: Not Given Sodium Chloride (Flush - Normal Saline) 10 ml IVF Q12HR [facility] Sodium Chloride (Flush - Normal Saline) 10 ml IVF PRN PRN PRN Reason: Saline Flush Tamsulosin HCl (Flomax) 0.4 mg PO QPM [facility] Last Admin: 03/03/18 22:38 Dose: 0.4 mg
[2018-03-04] MEDS ORDERED: Dexamethasone 10 MG in Sodium Chloride 0.9% 50 ML IVPB SCH (15:30)
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
[2018-03-04] MEDS ORDERED: Dexamethasone 4 mg/ml Vial SLOW IVP SCH (18:00)
[2018-03-04] MEDS: Divalproex Sodium DR 500 MG TAB PO SCH (21:08)
[2018-03-04] MEDS: Ubidecarenone 50 MG CAP PO SCH (21:09)
[2018-03-04] MEDS: Finasteride 5 MG TAB PO SCH (21:09)
[2018-03-04] MEDS: Folic Acid 1 MG TAB PO SCH (21:09)
[2018-03-04] MEDS: Atorvastatin Calcium 40 MG TAB PO SCH (21:10)
[2018-03-04] MEDS: Tamsulosin HCl 0.4 MG CAP PO SCH (21:10)
[2018-03-04] MEDS: Polyethylene Glycol 3350 17 GM Packet PO SCH (21:11)
[2018-03-04] MEDS: Milk Of Magnesia 30 ML UDCUP PO SCH (21:11)
[2018-03-04] MEDS: pyridOXINE 50 MG (B6) TAB PO SCH (21:16)
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
[2018-03-05] MEDS: Piperacillin/Tazobactam 3.375 GM in Sodium Chloride 0.9% 100 ML IVPB SCH ×5 (02:06→21:04)
[2018-03-05 04:37] LABS: Anion Gap 16 mmol/L (10-20); BUN (Urea Nitrogen) 12 mg/dL (8.4-25.7); Calc. Creatinine Clearance 75 mL/min (70-130); Calcium 11.3 mg/dL (7.8-10.44); Carbon Dioxide 27 mmol/L (23-31); Chloride 95 mmol/L (98-107); Estimated GFR-MDRD 79; Glucose 85 mg/dL (80-115); Magnesium 1.4 mg/dL (1.6-2.6); Phosphorus 3.6 mg/dL (2.3-4.7); Potassium 3.5 mmol/L (3.5-5.1); Sodium 134 mmol/L (136-145)
[2018-03-05 05:18] LABS: Anisocytosis SLIGHT = 6-15 cells (100X) (0-5/hpf); Band 14 % (5-11); Lymphocytes 27 % (21-51); MDiff Complete? YES; Mean Corpuscular Hemoglobin 33.2 pg (27.0-31.0); Mean Platelet Volume 6.8 fL (7.4-10.4); Monocytes 10 % (0-10); Neutrophil 49 % (42-75); Nucleated RBC 1 % (0); PLT Morphology Comment Appears Decreased; Platelet Count 70 thou/uL (130-400); RBC Distribution Width 14.7 % (11.5-14.5); Red Blood Cell (RBC) Count 3.01 mill/uL (4.70-6.10); White Blood Cell (WBC) Count 4.4 thou/uL (4.8-10.8)
[2018-03-05] MEDS ORDERED: Magnesium Sulfate 4 GM in Sodium Chloride 0.9% 250 ML 250 ML IVPB SCH (09:15)
[2018-03-05] MEDS ORDERED: Zoledronic Acid 4 MG in Sodium Chloride 0.9% 100 ML IVPB SCH (10:15)
[2018-03-05] MEDS: Heparin 5,000 UNITS/ML VIAL SC SCH ×2 (10:34→21:04)
[2018-03-05] MEDS: Senokot S 8.6-50 MG TAB PO SCH ×2 (10:34→21:03)
[2018-03-05] MEDS: Polyethylene Glycol 3350 17 GM Packet PO SCH ×2 (10:35→21:04)
[2018-03-05] MEDS: Tamsulosin HCl 0.4 MG CAP PO SCH ×2 (10:35→21:03)
[2018-03-05] MEDS: Aspirin 81 mg Enteric Coated Tablet PO SCH (10:36)
[2018-03-05] MEDS: Famotidine 20 MG TAB PO SCH (10:36)
[2018-03-05] MEDS: Sodium Chloride 0.9% 1,000 ML IV SCH ×2 (10:37→11:23)
[2018-03-05] MEDS: Calcitonin,Salmon,Synthetic 200 Units 3.7 ML PUMP L NARE SCH (11:17)
--- NOTE | 2018-03-05 11:46 | PRG ---
Patient Name: JESSI RICE Date of service: 03/05/2018 Subjective: Patient was seen and examined at bedside and overnight events noted. Patient denies any shortness of breath or chest pain or palpitation. No history of nausea or vomiting or diarrhea or fever or chills or cramps. Objective: General: This is a thin-built male in no apparent distress. Vital signs: Temperature 97.9, pulse 111, respirations 20, blood pressure 135/60. HEENT: Atraumatic, normocephalic. Oral mucosa is moist. Neck: Supple. Cardiovascular: S1 S2 heard. Rate and rhythm regular. Respiratory: Clear to auscultation. Gastrointestinal: Abdomen is soft. Musculoskeletal: No tenderness. No edema. Dermatologic: No skin rash. Neurologic: Alert and awake and oriented X3. No focal neurologic deficits. Moving all the extremit ies. Psychiatric: Mood and affect normal. LABORATORY DATA: Potassium is 3.5, BUN 12, creatinine 0.9. His calcium is 11.3, sodium 131. ASSESSMENT AND PLAN: 1. Hyponatremia, much better with IV hydration. We will continue IV hydration for 1 more day. 2. Hypercalcemia, most likely malignancy related. Follow with Oncology. Plan is to give calcitonin , IV, subcu calcitonin not available. Plan is to give nasal spray, will also add ____ acid, follow u p SPEP results. 3. Metabolic acidosis. 4. Hypertension, stable. 5. Edema, controlled. Prognosis is guarded. Follow up with Oncology. Sodium level is better as well as calcium. We will continue to monitor.
[2018-03-05] MEDS ORDERED: Lorazepam 1 MG TAB PO SCH ×2 (12:30)
[2018-03-05 12:40] LABS: Creatinine, Urine 40.12 mg/dL (63-166)
--- NOTE | 2018-03-05 16:00 | MRI ---
MRI OF THE THORACIC SPINE WITHOUT CONTRAST: Date: 03/05/18 INDICATION: History of urinary incontinence and low back pain. COMPARISON: CTA of thorax dated 03/03/18. FINDINGS: There are wedge compression abnormalities of T7 and T8, likely chronic in nature. There are inferior end plate compression abnormalities of T10 and T11, which are also likely chronic. There is acute T12 and L1 compression abnormality present. No definite central canal or gross neural foraminal narrowin g is evident. IMPRESSION: 1. Acute wedge compression abnormalities of T12 and L1. 2. Remote appearing compression abnormalities involving T11, T10, T7, and T8. 3. Diffuse marrow signal abnormality involving thoracolumbar spine consistent with metastatic diseas e. POS: [facility]
[2018-03-05] MEDS: Vancomycin HCl 1.5 GM in Sodium Chloride 0.9% 250 ML 300 ML IVPB SCH (16:41)
[2018-03-05] MEDS: Folic Acid 1 MG TAB PO SCH (21:02)
[2018-03-05] MEDS: Atorvastatin Calcium 40 MG TAB PO SCH (21:02)
[2018-03-05] MEDS: Ubidecarenone 50 MG CAP PO SCH (21:03)
[2018-03-05] MEDS: Finasteride 5 MG TAB PO SCH (21:03)
[2018-03-05] MEDS: Divalproex Sodium DR 500 MG TAB PO SCH (21:03)
[2018-03-05] MEDS: Milk Of Magnesia 30 ML UDCUP PO SCH (21:04)
[2018-03-05] MEDS: pyridOXINE 50 MG (B6) TAB PO SCH (21:04)
[2018-03-06] MEDS: HYDROcodone/Acetaminophen 5/325 mg Tablet PO PRN ×2 (01:38→20:41)
[2018-03-06] MEDS: Piperacillin/Tazobactam 3.375 GM in Sodium Chloride 0.9% 100 ML IVPB SCH ×4 (03:17→20:30)
[2018-03-06 05:32] LABS: #Lymphocytes 0.8 thou/uL (1.20-3.40); #Monocytes 0.5 thou/uL (0.11-0.59); %Basophils 0.2 % (0.0-1.0); %Eosinophils 0.5 % (0.0-10.0); %Lymphocytes 15.6 % (21.0-51.0); %Neutrophils 74.7 % (42.0-75.0); Hemoglobin 9.3 g/dL (14.0-18.0); Mean Corpuscular Hemoglobin 33.4 pg (27.0-31.0); Mean Corpuscular Volume 95.5 fL (78.0-98.0); Mean Platelet Volume 7.3 fL (7.4-10.4); Platelet Count 67 thou/uL (130-400); RBC Distribution Width 14.8 % (11.5-14.5); Red Blood Cell (RBC) Count 2.79 mill/uL (4.70-6.10); White Blood Cell (WBC) Count 5.3 thou/uL (4.8-10.8)
[2018-03-06 05:44] LABS: Anion Gap 17 mmol/L (10-20); BUN (Urea Nitrogen) 11 mg/dL (8.4-25.7); Calc. Creatinine Clearance 69 mL/min (70-130); Carbon Dioxide 26 mmol/L (23-31); Chloride 97 mmol/L (98-107); Estimated GFR-MDRD 71; Glucose 82 mg/dL (80-115); Magnesium 2.2 mg/dL (1.6-2.6); Potassium 3.8 mmol/L (3.5-5.1); Sodium 136 mmol/L (136-145)
[2018-03-06] MEDS ORDERED: Diltiazem 125 MG in Sodium Chloride 0.9% 100 ML IVPB SCH (07:45)
[2018-03-06] MEDS: Famotidine 20 MG TAB PO SCH (09:12)
[2018-03-06] MEDS: Aspirin 81 mg Enteric Coated Tablet PO SCH (09:13)
[2018-03-06] MEDS: Tamsulosin HCl 0.4 MG CAP PO SCH ×2 (09:13→20:32)
[2018-03-06] MEDS: Calcitonin,Salmon,Synthetic 200 Units 3.7 ML PUMP L NARE SCH (09:14)
[2018-03-06] MEDS: Heparin 5,000 UNITS/ML VIAL SC SCH (09:14)
[2018-03-06] MEDS: Senokot S 8.6-50 MG TAB PO SCH ×2 (09:16→20:31)
[2018-03-06] MEDS: Polyethylene Glycol 3350 17 GM Packet PO SCH ×2 (09:16→20:30)
--- NOTE | 2018-03-06 11:34 | PDOC.PN ---
- Subjective Encounter Start Date: 03/05/18 Encounter Start Time: 11:00 Patient seen and examined for Sepsis/Bacteremia. Late entry from 03/05. Feels better. Back pain persists. No overnight events - Objective Resuscitation Status: Resuscitation Status FULL:Full Resuscitation MAR Reviewed: Yes Vital Signs & Weight: Vital Signs (12 hours) Temp Pulse Resp BP Pulse Ox 03/06/18 11:22 97.6 F 171 H 19 114/67 100 03/06/18 10:59 170 H 03/06/18 08:00 97.6 F 178 H 18 95 03/06/18 07:31 97.6 F 106 H 18 165/77 H 100 03/06/18 07:25 99 03/06/18 07:24 180 H 16 99 03/06/18 03:41 97.1 F L 103 H 14 151/69 H 100 03/06/18 02:44 96 18 97 03/06/18 00:00 97.3 F L 99 18 154/74 H 100 Weight Admit Weight 160 lb Weight 160 lb I&O: 03/05/18 03/06/18 03/07/18 06:59 06:59 06:59 Intake Total 1352.5 240 Output Total 500 Balance 852.5 240 Result Diagrams: 03/06/18 04:21 03/06/18 04:21 Radiology Reviewed by me: Yes (MRI thoracic spine - Mets) EKG Reviewed by me: Yes (Tele SR) Phys Exam - Physical Examination Constitutional: NAD Respiratory: no wheezing, no rhonchi Cardiovascular: RRR, no rub Gastrointestinal: soft, non-tender, positive bowel sounds Musculoskeletal: no edema Neurological: non-focal, moves all 4 limbs Psychiatric: A&O x 3 Dx/Plan - Plan DVT proph w/SCDs IMPRESSION: 1. Generalized weakness with intractable back pain with loss of bladder control and difficulty ambulating. 2. Staph bacteremia 3. Electrolyte imbalance -severe hyponatremia and hypercalcemia. 4. Aspiration pneumonia. on Zosyn 5. Urinary incontinence x 1 week, multifactorial, suspected neurogenic. 6. Elevated troponins, probably secondary to demand ischemia. 7. 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 There is also a new pathologic fracture at T12 with compression abnormalities involving T12, T8, and T7 which appears similar to previous imaging. 8. Chronic anemia. 9. Hypertension. 10. Hyperlipidemia. 11. Seizure disorder - on Depakote 12. Decubitus ulcer, stage 2 over the gluteal region present on admission. 13. Thrombocytopenia. 14. Carotid stenosis status post recent right carotid endarterectomy. 15. Coronary artery disease, status post recent cardiac catheterization by Dr. Caballero. 16. Suspected chronic obstructive pulmonary disease. 17. Chronic pain syndrome on hydrocodone. 18. Moderate Protein Calorie Malnutrition. 19. Fecal impaction PLAN: * Cont Zosyn and Vancomycin * PT/OT/ST * s/p Calcitonin and Zoledronic acid * Cont current meds as below * Cont Flomax to BID (home dose) Review of Systems - Review of Systems Respiratory: negative: Cough, Dry, Shortness of Breath, Hemoptysis, SOB with Excertion, Pleuritic Pain, Sputum, Wheezing Cardiovascular: negative: chest pain, palpitations, orthopnea, paroxysmal nocturnal dyspnea, edema, light headedness, other - Medications/Allergies Allergies/Adverse Reactions: Allergies Allergy/AdvReac Type Severity Reaction Status Date / Time No Known Allergies Allergy Verified 03/03/18 19:17 Medications: Current Medications Acetaminophen (Tylenol) 650 mg PO Q4H PRN PRN Reason: Headache/Fever or Pain Hydrocodone Bitart/Acetaminophen ([place] 5/325) 1 tab PO Q4H PRN PRN Reason: Moderate Pain (4-6) Last Admin: 03/06/18 01:38 Dose: 1 tab Albuterol/Ipratropium (Duoneb) 3 ml NEB [id number] [facility] Last Admin: 03/06/18 10:59 Dose: Not Given Albuterol/Ipratropium (Duoneb) 3 ml NEB Q2H PRN PRN Reason: SOB &/or Wheezing Aspirin (Ecotrin) 81 mg PO DAILY [facility] Last Admin: 03/06/18 09:13 Dose: 81 mg Atorvastatin Calcium (Lipitor) 40 mg PO QPM [facility] Last Admin: 03/05/18 21:02 Dose: 40 mg Bisacodyl (Dulcolax) 10 mg [place] Q24H PRN PRN Reason: Constipation Calcium Carbonate (Tums) 1,000 mg PO Q4H PRN PRN Reason: Heartburn or Indigestion Clonidine (Catapres) 0.1 mg PO Q4H PRN PRN Reason: Systolic BP > 180 Coenzyme Q10 (Coenzyme Q10) 100 mg PO QPM [facility] Last Admin: 03/05/18 21:03 Dose: 100 mg Divalproex Sodium (Depakote) 1,500 mg PO QPM [facility] Last Admin: 03/05/18 21:03 Dose: 1,500 mg Famotidine (Pepcid) 20 mg PO DAILY [facility] Last Admin: 03/06/18 09:12 Dose: 20 mg Finasteride (Proscar) 5 mg PO QPM [facility] Last Admin: 03/05/18 21:03 Dose: 5 mg Folic Acid (Folvite) 1 mg PO QPM [facility] Last Admin: 03/05/18 21:02 Dose: 1 mg Heparin Sodium (Porcine) (Heparin) 5,000 units SC BID [facility] Last Admin: 03/06/18 09:14 Dose: 5,000 units Hydralazine HCl (Apresoline) 5 mg SLOW IVP Q4H PRN PRN Reason: SBP Greater Than 180 Piperacillin Sod/Tazobactam (Sod 3.375 gm/ Sodium Chloride) 100 mls @ 200 mls/ hr IVPB 0300,0900,1500,2100 [facility] Last Admin: 03/06/18 09:13 Dose: 100 mls Vancomycin HCl 1.5 gm/ Sodium (Chloride) 300 mls @ 200 mls/hr IVPB 1400 [facility] Last Admin: 03/05/18 16:41 Dose: 300 mls Sodium Chloride (Normal Saline 0.9%) 1,000 mls @ 50 mls/hr IV .Q20H [facility] Last Admin: 03/05/18 10:37 Dose: 1,000 mls Diltiazem HCl 125 mg/ Sodium (Chloride) 125 mls @ 5 mls/hr IVPB INF [facility]; 5 MG/ HR PRN Reason: Protocol Last Admin: 03/06/18 08:13 Dose: 125 mls Magnesium Hydroxide (Milk Of Magnesium) 30 ml PO DAILYPRN PRN PRN Reason: Constipation Miscellaneous Medication (Pharmacy To Dose) 1 each IVPB ASDIR [facility] Nitroglycerin (Nitrostat) 0.4 mg PO Q5MIN PRN PRN Reason: Chest Pain Ondansetron HCl (Zofran Odt) 4 mg PO Q6H PRN PRN Reason: Nausea/Vomiting Ondansetron HCl (Zofran) 4 mg IVP Q6H PRN PRN Reason: Nausea/Vomiting Polyethylene Glycol (Miralax) 17 gm PO BID [facility] Last Admin: 03/06/18 09:16 Dose: Not Given Pyridoxine HCl (Vitamin B 6) 100 mg PO QPM [facility] Last Admin: 03/05/18 21:04 Dose: 100 mg Senna/Docusate Sodium (Senokot S) 2 tab PO BID [facility] Last Admin: 03/06/18 09:16 Dose: Not Given Sodium Chloride (Flush - Normal Saline) 10 ml IVF Q12HR [facility] Last Admin: 03/06/18 09:15 Dose: 10 ml Sodium Chloride (Flush - Normal Saline) 10 ml IVF PRN PRN PRN Reason: Saline Flush Tamsulosin HCl (Flomax) 0.4 mg PO BID [facility] Last Admin: 03/06/18 09:13 Dose: 0.4 mg
--- NOTE | 2018-03-06 11:48 | PDOC.EVN ---
Event Note - Event Note Event Note: Event note - RN called - Patient converted to Afib with RVR - Will start IV Cardizem drip after bolus
--- NOTE | 2018-03-06 13:09 | PRG ---
DATE OF SERVICE: 03/06/2018 SUBJECTIVE: Patient was seen and examined at bedside and overnight events noted. Patient denies any shortness of breath or chest pain or palpitation. No history of nausea or vomiting or diarrhea or f ever or chills or cramps. OBJECTIVE: GENERAL: Elderly male in no apparent distress. VITAL SIGNS: Temperature 97.6, pulse 106, respiratory rate 18, and blood pressure 165/77. HEENT: Atraumatic, normocephalic, Oral mucosa is moist. Neck: Supple. Cardiovascular: S1 and S2 heard. Rate and rhythm regular. Respiratory: Clear to auscultation. Gastrointestinal: Abdomen is soft. Musculoskeletal: No tenderness, No edema. Dermatologic: No skin rash. Neurologic: Alert and awake and oriented x3. No focal neurologic deficits. Moving all the extremit ies. Psychiatric: Mood and affect normal. LABORATORY DATA: Potassium is 3.8, sodium is 136, BUN is 11, creatinine is 1.03, calcium is 11. ASSESSMENT AND PLAN: 1. Hyponatremia, better stable. 2. Hypercalcemia getting better. He had a dose of Zometa yesterday. Follow up with Oncology. 3. . 4. Metabolic acidosis. 5. Hypertension, stable. 6. Edema, controlled. 7. Anemia, most likely secondary to myeloma. 8. Follow with SPEP results, add dose of calcitonin and Zometa. We will follow.
[2018-03-06] MEDS ORDERED: Amiodarone In Dextrose 200 ML IVPB SCH (13:30)
[2018-03-06] MEDS ORDERED: Amiodarone HCl 150 MG, Admixture Fee 1 EACH in Dextrose 5% in Water 100 ML IVPB SCH (13:30)
[2018-03-06] MEDS: Amiodarone HCl 450 MG, Admixture Fee 1 EACH in Dextrose 5% in Water 250 ML IVPB SCH ×2 (13:47→21:26)
[2018-03-06 14:00] LABS: ALT (SGPT) 13 U/L (8-55); AST (SGOT) 49 U/L (5-34); Albumin 3.4 g/dL (3.4-4.8); Alkaline Phosphatase 65 U/L (40-150); Bilirubin, Direct 0.3 mg/dL (0.1-0.3); Bilirubin, Total 0.5 mg/dL (0.2-1.2); Protein, Total 7.7 g/dL (5.8-8.1)
[2018-03-06] MEDS: Vancomycin HCl 1.75 GM in Sodium Chloride 0.9% 500 ML IVPB SCH (15:44)
[2018-03-06 16:18] LABS: A/G Ratio 0.7 (0.7-1.7); Alpha 1 0.4 g/dL (0.0-0.4); Alpha 2 0.8 g/dL (0.4-1.0); Beta 2.6 g/dL (0.7-1.3); Gamma 0.6 g/dL (0.4-1.8); Globulin, Total 4.3 g/dL (2.2-3.9); M-Spike 1.9 g/dL (Not Observed)
[2018-03-06] MEDS: Vancomycin HCl 1.5 GM in Sodium Chloride 0.9% 250 ML 300 ML IVPB SCH (16:42)
[2018-03-06 17:15] LABS: Alpha 1 - Ur 5.2 % (.); Alpha 2 - Ur 4.9 % (.); Beta-Ur 12.5 % (.); Gamma-Ur 30.4 % (.); M-Spike,% 27.5 % (Not Observed); Protein, Urine 148.5 mg/dL (Not Estab.)
[2018-03-06] MEDS: Sodium Chloride 0.9% 1,000 ML IV SCH (20:22)
[2018-03-06] MEDS: Atorvastatin Calcium 40 MG TAB PO SCH (20:28)
[2018-03-06] MEDS: Divalproex Sodium DR 500 MG TAB PO SCH (20:29)
[2018-03-06] MEDS: Folic Acid 1 MG TAB PO SCH (20:30)
[2018-03-06] MEDS: Finasteride 5 MG TAB PO SCH (20:30)
[2018-03-06] MEDS: pyridOXINE 50 MG (B6) TAB PO SCH (20:31)
[2018-03-06] MEDS: Ubidecarenone 50 MG CAP PO SCH (20:32)
--- NOTE | 2018-03-06 22:45 | PDOC.PN ---
- Subjective Encounter Start Date: 03/06/18 Encounter Start Time: 13:00 Patient seen and examined for multiple med issues. Converted to Afib with RVR. No CP No new complaints. No overnight events - Objective Resuscitation Status: Resuscitation Status FULL:Full Resuscitation MAR Reviewed: Yes Vital Signs & Weight: Vital Signs (12 hours) Temp Pulse Pulse Pulse Resp BP BP 03/06/18 21:55 105 H 18 03/06/18 19:31 97.8 F 106 H 20 03/06/18 18:23 103 H 18 03/06/18 15:30 98.2 F 102 H 20 03/06/18 14:03 186 H 109 H 94/62 133/59 L 03/06/18 13:53 194 H 03/06/18 11:22 97.6 F 171 H 19 03/06/18 10:59 170 H BP Pulse Ox Pulse Ox Pulse Ox 03/06/18 21:55 96 03/06/18 19:31 154/55 H 98 03/06/18 18:23 98 03/06/18 15:30 137/50 L 94 L 03/06/18 14:03 93 L 96 03/06/18 13:53 03/06/18 11:22 114/67 100 03/06/18 10:59 Weight Admit Weight 160 lb Weight 160 lb I&O: 03/05/18 03/06/18 03/07/18 06:59 06:59 06:59 Intake Total 1352.5 240 Output Total 500 Balance 852.5 240 Result Diagrams: 03/06/18 04:21 03/06/18 04:21 Radiology Reviewed by me: Yes (Tele Afib with RVR) EKG Reviewed by me: Yes Phys Exam - Physical Examination Constitutional: NAD Respiratory: no wheezing Bibasilar rales/rhonchi, Symmetrical Cardiovascular: no rub, irregular tachycardic Gastrointestinal: soft, non-tender, no distention, positive bowel sounds Musculoskeletal: no edema Neurological: moves all 4 limbs No new focal deficits Dx/Plan - Plan DVT proph w/SCDs IMPRESSION: 1. Generalized weakness with intractable back pain with loss of bladder control and difficulty ambulating. 2. Staph bacteremia 3. Electrolyte imbalance -severe hyponatremia and hypercalcemia s/p Calcitonin/ Zometa. 4. Aspiration pneumonia. on Zosyn 5. New onset Afib with RVR - prob not a candidate for anticoag 6. Elevated troponins, probably secondary to demand ischemia. 7. 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 There is also a new pathologic fracture at T12 with compression abnormalities involving T12, T8, and T7 which appears similar to previous imaging. 8. Other issues per previous notes PLAN: * Case d/w Cardiology * Rate not adequately controlled despite Cardizem drip - Will change to Amiodarone per Cardiology * Await PEP * Cont Vancomycin * Pain control * AM labs * Cont current meds as below Review of Systems - Review of Systems Respiratory: negative: Cough, Dry, Shortness of Breath, Hemoptysis, SOB with Excertion, Pleuritic Pain, Sputum, Wheezing Cardiovascular: palpitations. negative: chest pain, orthopnea, paroxysmal nocturnal dyspnea, edema, light headedness, other - Medications/Allergies Allergies/Adverse Reactions: Allergies Allergy/AdvReac Type Severity Reaction Status Date / Time No Known Allergies Allergy Verified 03/03/18 19:17 Medications: Current Medications Acetaminophen (Tylenol) 650 mg PO Q4H PRN PRN Reason: Headache/Fever or Pain Hydrocodone Bitart/Acetaminophen ([place] 5/325) 1 tab PO Q4H PRN PRN Reason: Moderate Pain (4-6) Last Admin: 03/06/18 20:41 Dose: 1 tab Albuterol/Ipratropium (Duoneb) 3 ml NEB [id number] [facility] Last Admin: 03/06/18 21:55 Dose: 3 ml Albuterol/Ipratropium (Duoneb) 3 ml NEB Q2H PRN PRN Reason: SOB &/or Wheezing Aspirin (Ecotrin) 81 mg PO DAILY [facility] Last Admin: 03/06/18 09:13 Dose: 81 mg Atorvastatin Calcium (Lipitor) 40 mg PO QPM [facility] Last Admin: 03/06/18 20:28 Dose: 40 mg Bisacodyl (Dulcolax) 10 mg [place] Q24H PRN PRN Reason: Constipation Calcium Carbonate (Tums) 1,000 mg PO Q4H PRN PRN Reason: Heartburn or Indigestion Clonidine (Catapres) 0.1 mg PO Q4H PRN PRN Reason: Systolic BP > 180 Coenzyme Q10 (Coenzyme Q10) 100 mg PO QPM [facility] Last Admin: 03/06/18 20:32 Dose: 100 mg Divalproex Sodium (Depakote) 1,500 mg PO QPM [facility] Last Admin: 03/06/18 20:29 Dose: 1,500 mg Famotidine (Pepcid) 20 mg PO DAILY [facility] Last Admin: 03/06/18 09:12 Dose: 20 mg Finasteride (Proscar) 5 mg PO QPM [facility] Last Admin: 03/06/18 20:30 Dose: 5 mg Folic Acid (Folvite) 1 mg PO QPM [facility] Last Admin: 03/06/18 20:30 Dose: 1 mg Hydralazine HCl (Apresoline) 5 mg SLOW IVP Q4H PRN PRN Reason: SBP Greater Than 180 Piperacillin Sod/Tazobactam (Sod 3.375 gm/ Sodium Chloride) 100 mls @ 200 mls/ hr IVPB 0300,0900,1500,2100 [facility] Last Admin: 03/06/18 20:30 Dose: 100 mls Sodium Chloride (Normal Saline 0.9%) 1,000 mls @ 50 mls/hr IV .Q20H [facility] Last Admin: 03/06/18 20:22 Dose: 1,000 mls Amiodarone HCl 450 mg/Miscellaneous Medication 1 each/ Dextrose/Water 259 mls @ 0 mls/hr IVPB INF [facility]; As Directed PRN Reason: Protocol Last Admin: 03/06/18 21:26 Dose: 259 mls Vancomycin HCl 1.75 gm/ Sodium (Chloride) 500 mls @ 250 mls/hr IVPB 1500 [facility] Last Admin: 03/06/18 15:44 Dose: 500 mls Magnesium Hydroxide (Milk Of Magnesium) 30 ml PO DAILYPRN PRN PRN Reason: Constipation Miscellaneous Medication (Pharmacy To Dose) 1 each IVPB ASDIR [facility] Nitroglycerin (Nitrostat) 0.4 mg PO Q5MIN PRN PRN Reason: Chest Pain Ondansetron HCl (Zofran Odt) 4 mg PO Q6H PRN PRN Reason: Nausea/Vomiting Ondansetron HCl (Zofran) 4 mg IVP Q6H PRN PRN Reason: Nausea/Vomiting Polyethylene Glycol (Miralax) 17 gm PO BID [facility] Last Admin: 03/06/18 20:30 Dose: 17 gm Pyridoxine HCl (Vitamin B 6) 100 mg PO QPM [facility] Last Admin: 03/06/18 20:31 Dose: 100 mg Senna/Docusate Sodium (Senokot S) 2 tab PO BID [facility] Last Admin: 03/06/18 20:31 Dose: 2 tab Sodium Chloride (Flush - Normal Saline) 10 ml IVF Q12HR [facility] Last Admin: 03/06/18 20:40 Dose: 10 ml Sodium Chloride (Flush - Normal Saline) 10 ml IVF PRN PRN PRN Reason: Saline Flush Tamsulosin HCl (Flomax) 0.4 mg PO BID [facility] Last Admin: 03/06/18 20:32 Dose: 0.4 mg
[2018-03-07] MEDS: Piperacillin/Tazobactam 3.375 GM in Sodium Chloride 0.9% 100 ML IVPB SCH ×4 (03:58→21:08)
[2018-03-07] MEDS: HYDROcodone/Acetaminophen 5/325 mg Tablet PO PRN ×3 (03:58→21:04)
[2018-03-07] MEDS: Senokot S 8.6-50 MG TAB PO SCH ×2 (10:49→21:07)
[2018-03-07] MEDS: Aspirin 81 mg Enteric Coated Tablet PO SCH (10:49)
[2018-03-07] MEDS: Famotidine 20 MG TAB PO SCH (10:50)
[2018-03-07] MEDS: Tamsulosin HCl 0.4 MG CAP PO SCH ×2 (10:50→21:02)
--- NOTE | 2018-03-07 10:50 | CON ---
DATE OF CONSULTATION: 03/06/2018 HISTORY OF PRESENT ILLNESS: The patient is an unfortunate 72-year-old gentleman with a history of coronary artery disease who presented with back discomfort and weakness and was noted to have a very rapid irregular heart rhythm. The patient in 1998 underwent a cardiac catheterization and found to have a 50% mid LAD lesion and a 50% OM lesion. Most recently, he underwent another catheterization in 2018. He was found to have a 100% occlusion of his left circumflex artery with collateral flow. His ejection fraction was 50%. The patient recently has become increasingly weak. He has had several falls. He denied having any chest discomfort or palpitations. He was admitted with marked weakness. During his hospitalization, he suddenly developed a rapid heart rate. The patient denies having any type of discomfort, lightheadedness or dizziness. PAST MEDICAL HISTORY: 1. Coronary artery disease. 2. Hypertension. 3. Seizure disorder. 4. Chronic obstructive pulmonary disease. 5. Hyperlipidemia. 6. Severe cerebrovascular disease. PAST SURGICAL HISTORY: Shoulder surgery, PEG tube, tracheostomy, and craniotomy. MEDICATION ON ADMISSION: Depakote 500 mg b.i.d., lisinopril 5 daily, Lipitor 40 at bedtime, Norvasc 10 daily, Flomax 0.4 daily, finasteride 5 mg daily. SOCIAL HISTORY: He has a long extensive history of tobacco abuse. FAMILY HISTORY: Positive family history of heart disease. REVIEW OF SYSTEMS: Noticeable for no fevers or chills. He does report having weight loss. PHYSICAL EXAMINATION: GENERAL: This is a pale gentleman in mild distress. VITAL SIGNS: Blood pressure 114/67. HEART: Regular rate and rhythm with a heart rate of 170. NECK: Showed no jugular venous distention. LUNGS: Coarse breath sounds bilateral. HEART: Irregular rate and rhythm, normal S1, S2. ABDOMEN: Nondistended. EXTREMITIES: Shows trace edema. LABORATORY DATA: His laboratory results revealed him to have white blood cell count of 5.3, hemoglobin 9.3, hematocrit 26.6, platelets are 67. His telemetry monitoring revealed him to have rapid atrial fibrillation/flutter. ASSESSMENT: This gentleman presents with new onset atrial fibrillation/ flutter. He also has been found to have evidence of possible multiple myeloma. His blood cultures also revealed him to have evidence of sepsis. From a cardiac standpoint, I would recommend treating with IV amiodarone,since IV Cardizem has not converted him back to sinus rhythm. We will follow this patient with you through his hospitalization. PLAN: 1. Start IV amiodarone. 2. We will check an echocardiogram to see if there is any evidence of vegetations. HAILEY
[2018-03-07] MEDS: Polyethylene Glycol 3350 17 GM Packet PO SCH ×2 (10:54→21:12)
[2018-03-07] MEDS: Sodium Chloride 0.9% 1,000 ML IV SCH (10:55)
[2018-03-07] MEDS: Amiodarone 200 MG TAB PO SCH ×2 (11:04→20:59)
[2018-03-07] MEDS ORDERED: Fentanyl 100 MCG/2 ML VIAL ONE (12:50)
[2018-03-07] MEDS ORDERED: Midazolam HCl 2 mg/2 ml Vial ONE (12:51)
[2018-03-07] MEDS: Vancomycin HCl 1.75 GM in Sodium Chloride 0.9% 500 ML IVPB SCH (15:11)
[2018-03-07] MEDS ORDERED: Dexamethasone 4 MG TAB PO SCH (15:45)
--- NOTE | 2018-03-07 15:46 | PRG ---
DATE OF SERVICE: 03/07/2018 SUBJECTIVE: Patient was seen and examined at bedside and overnight events noted. Patient denies any shortness of breath or chest pain or palpitation. No history of nausea or vomiting or diarrhea or f ever or chills or cramps. OBJECTIVE: GENERAL: This is a well-built male in no apparent distress. VITAL SIGNS: Temperature 97.8, pulse 112, respiratory rate 18, blood pressure 156/77. HEENT: Atraumatic, normocephalic. Oral mucosa is moist. NECK: Supple. CARDIOVASCULAR: S1, S2 heard. Rate and rhythm regular. RESPIRATORY: Clear to auscultation. GASTROINTESTINAL: Abdomen is soft. MUSCULOSKELETAL: No tenderness. No edema. DERMATOLOGIC: No skin rash. NEUROLOGIC: Alert and awake and oriented x3. No focal neurologic deficits. Moving all the extremiti es. PSYCHIATRIC: Mood and affect normal. LABORATORY DATA: No labs done today. ASSESSMENT AND PLAN: 1. Hyponatremia, much better. 2. Hypercalcemia getting better. Recheck labs in the morning and add a dose of Zometa. 3. Hypertension, stable. 4. Edema. 5. Anemia. 6. Proteinuria .
--- NOTE | 2018-03-07 15:58 | CT ---
CT GUIDED BONE MARROW ASPIRATION/BONE BIOPSY OF THE LEFT ILIUM: 03/07/18 CLINICAL HISTORY: Myeloma. Compression fractures. PROCEDURE: Informed consent was obtained. The patient was escorted to the procedural suite. Patient was placed i nto an appropriate prone position. Conscious sedation was provided by the radiology nurse, Skye, the patient was monitored accordingly in stable condition throughout the duration of the procedure. The patient's posterior pelvis was prepped and draped in the standard sterile fashion. Topical anesthesia with buffered 1% lidocaine was performed. A small skin incision was made. Deep soft tissue lidocaine administration as well as perosteal lidocaine administration performed. Subsequently, using a Dekko bone biopsy kit, trocar was advanced to the leading edge of the posterior aspect of the left iliac bone. The cortex was then uneventfully penetrated and intramedullary location was confirmed with CT fluoroscopic imaging. Subsequently bone marrow aspirate was performed. Approximately 7 mL of bone mar row aspirate were provided to the photovoltaic testing technician. Afterwards, a bone marrow biopsy of the left ilium was performed. Core specimen was submitted to photovoltaic testing technician was deemed adequate for in terpretation. All the devices were removed from the patient. Patient tolerated the procedure well wit hout evidence of complication. Imaging was stored for documentation. IMPRESSION: 1. Technically successful CT guided marrow aspiration. 2. Technically successful CT guided biopsy of the left ilium. Pathology results pending. POS: B[place]
[2018-03-07 16:17] LABS: Kappa Lambda Light Chain Ratio 0.01 (0.26-1.65); Kappa Light Chains 6.9 mg/L (3.3-19.4); Lambda Light Chain 814.3 mg/L (5.7-26.3)
[2018-03-07] MEDS: Divalproex Sodium DR 500 MG TAB PO SCH (21:00)
[2018-03-07] MEDS: Ubidecarenone 50 MG CAP PO SCH (21:00)
[2018-03-07] MEDS: Atorvastatin Calcium 40 MG TAB PO SCH (21:02)
[2018-03-07] MEDS: Finasteride 5 MG TAB PO SCH (21:07)
[2018-03-07] MEDS: Folic Acid 1 MG TAB PO SCH (21:12)
[2018-03-07] MEDS: pyridOXINE 50 MG (B6) TAB PO SCH (21:13)
[2018-03-07] MEDS ORDERED: Diltiazem HCl 125 MG, Admixture Fee 1 EACH in Sodium Chloride 0.9% 100 ML IVPB SCH (22:15)
--- NOTE | 2018-03-07 22:49 | PDOC.PN ---
- Subjective Encounter Start Date: 03/07/18 Encounter Start Time: 11:30 Patient seen and examined for Sepsis/Bacteremia and electrolyte abnormalities. Converted to SR on Amiodarone. No CP. No new complaints. No overnight events - Objective Resuscitation Status: Resuscitation Status FULL:Full Resuscitation MAR Reviewed: Yes Vital Signs & Weight: Vital Signs (12 hours) Temp Pulse Resp BP Pulse Ox 03/07/18 22:36 124 H 20 92 L 03/07/18 18:32 117 H 22 H 86 L 03/07/18 16:36 98.4 F 102 H 24 H 93 L 03/07/18 16:00 98.4 F 102 H 24 H 156/69 H 93 L 03/07/18 14:35 107 H 20 100 03/07/18 11:25 97.9 F 110 H 20 156/77 H 96 03/07/18 11:16 93 L 03/07/18 11:14 107 H 24 H 93 L Weight Admit Weight 160 lb Weight 160 lb I&O: 03/06/18 03/07/18 03/08/18 06:59 06:59 06:59 Intake Total 240 1240 540 Balance 240 1240 540 Result Diagrams: 03/08/18 04:21 03/08/18 04:21 Phys Exam - Physical Examination Constitutional: NAD Respiratory: no wheezing Scat rhonchi, Bibasilar rales Cardiovascular: RRR, no rub Gastrointestinal: soft, non-tender, positive bowel sounds Musculoskeletal: no edema Neurological: moves all 4 limbs Psychiatric: A&O x 3 Dx/Plan - Plan continue antibiotics, PT/OT, social research assistant, speech therapy, respiratory therapy, DVT proph w/SCDs (No Lovenox due to low platelets) IMPRESSION: 1. Generalized weakness with intractable back pain with loss of bladder control and difficulty ambulating. 2. Staph bacteremia - Coag negat 3. Electrolyte imbalance -severe hyponatremia and hypercalcemia s/p Calcitonin/ Zometa. 4. Aspiration pneumonia. on Zosyn 5. New onset Afib with RVR - on Amiodarone - in SR - not a candidate for anticoag 6. Chronic systolic HF - EF - 40 % / Elevated troponins, probably secondary to demand ischemia. 7. 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 There is also a new pathologic fracture at T12 with compression abnormalities involving T12, T8, and T7 which appears similar to previous imaging. 8. Pancytopenia/Hypertension/Hyperlipidemia/Seizure disorder - on Depakote/ Decubitus ulcer, stage 2 over the gluteal region present on admission/Carotid stenosis status post recent right carotid endarterectomy/Coronary artery disease /Chronic pain syndrome on hydrocodone/Moderate Protein Calorie Malnutrition/ Fecal impaction - resolved PLAN: * Amiodarone per Cardiology * Oncology/Nephrology following * Cont Vancomycin/Zosyn * On Dexamethasone per Oncology * AM labs * Cont current meds as below * Monitor platelets Review of Systems - Review of Systems Constitutional: weakness. negative: fever, chills, sweats, malaise, other Cardiovascular: negative: chest pain, palpitations, orthopnea, paroxysmal nocturnal dyspnea, edema, light headedness, other Gastrointestinal: negative: Nausea, Vomiting, Abdominal Pain, Diarrhea, Constipation, Melena, Hematochezia, Other - Medications/Allergies Allergies/Adverse Reactions: Allergies Allergy/AdvReac Type Severity Reaction Status Date / Time No Known Allergies Allergy Verified 03/03/18 19:17 Medications: Current Medications Acetaminophen (Tylenol) 650 mg PO Q4H PRN PRN Reason: Headache/Fever or Pain Hydrocodone Bitart/Acetaminophen ([place] 5/325) 1 tab PO Q4H PRN PRN Reason: Moderate Pain (4-6) Last Admin: 03/07/18 21:04 Dose: 1 tab Albuterol/Ipratropium (Duoneb) 3 ml NEB [id number] [facility] Last Admin: 03/07/18 22:36 Dose: 3 ml Albuterol/Ipratropium (Duoneb) 3 ml NEB Q2H PRN PRN Reason: SOB &/or Wheezing Amiodarone HCl (Cordarone) 400 mg PO BID [facility] Last Admin: 03/07/18 20:59 Dose: 400 mg Aspirin (Ecotrin) 81 mg PO DAILY [facility] Last Admin: 03/07/18 10:49 Dose: 81 mg Atorvastatin Calcium (Lipitor) 40 mg PO QPM [facility] Last Admin: 03/07/18 21:02 Dose: 40 mg Bisacodyl (Dulcolax) 10 mg ND Q24H PRN PRN Reason: Constipation Calcium Carbonate (Tums) 1,000 mg PO Q4H PRN PRN Reason: Heartburn or Indigestion Clonidine (Catapres) 0.1 mg PO Q4H PRN PRN Reason: Systolic BP > 180 Coenzyme Q10 (Coenzyme Q10) 100 mg PO QPM [facility] Last Admin: 03/07/18 21:00 Dose: 100 mg Dexamethasone (Decadron) 40 mg PO QA-[facility] Stop: 03/10/18 08:01 Divalproex Sodium (Depakote) 1,500 mg PO QPM [facility] Last Admin: 03/07/18 21:00 Dose: 1,500 mg Famotidine (Pepcid) 20 mg PO DAILY [facility] Last Admin: 03/07/18 10:50 Dose: 20 mg Finasteride (Proscar) 5 mg PO QPM [facility] Last Admin: 03/07/18 21:07 Dose: 5 mg Folic Acid (Folvite) 1 mg PO QPM [facility] Last Admin: 03/07/18 21:12 Dose: 1 mg Hydralazine HCl (Apresoline) 5 mg SLOW IVP Q4H PRN PRN Reason: SBP Greater Than 180 Piperacillin Sod/Tazobactam (Sod 3.375 gm/ Sodium Chloride) 100 mls @ 200 mls/ hr IVPB 0300,0900,1500,2100 [facility] Last Admin: 03/07/18 21:08 Dose: 100 mls Sodium Chloride (Normal Saline 0.9%) 1,000 mls @ 50 mls/hr IV .Q20H [facility] Last Admin: 03/07/18 10:55 Dose: 1,000 mls Vancomycin HCl 1.75 gm/ Sodium (Chloride) 500 mls @ 250 mls/hr IVPB 1500 [facility] Last Admin: 03/07/18 15:11 Dose: 500 mls Diltiazem HCl 125 mg/Miscellaneous Medication 1 each/ Sodium Chloride 125 mls @ 5 mls/hr IVPB INF [facility] PRN Reason: Protocol Last Admin: 03/07/18 22:28 Dose: 125 mls Magnesium Hydroxide (Milk Of Magnesium) 30 ml PO DAILYPRN PRN PRN Reason: Constipation Miscellaneous Medication (Pharmacy To Dose) 1 each IVPB ASDIR [facility] Nitroglycerin (Nitrostat) 0.4 mg PO Q5MIN PRN PRN Reason: Chest Pain Ondansetron HCl (Zofran Odt) 4 mg PO Q6H PRN PRN Reason: Nausea/Vomiting Ondansetron HCl (Zofran) 4 mg IVP Q6H PRN PRN Reason: Nausea/Vomiting Polyethylene Glycol (Miralax) 17 gm PO BID [facility] Last Admin: 03/07/18 21:12 Dose: Not Given Pyridoxine HCl (Vitamin B 6) 100 mg PO QPM [facility] Last Admin: 03/07/18 21:13 Dose: 100 mg Senna/Docusate Sodium (Senokot S) 2 tab PO BID [facility] Last Admin: 03/07/18 21:07 Dose: 2 tab Sodium Chloride (Flush - Normal Saline) 10 ml IVF Q12HR [facility] Last Admin: 03/07/18 21:14 Dose: 10 ml Sodium Chloride (Flush - Normal Saline) 10 ml IVF PRN PRN PRN Reason: Saline Flush Tamsulosin HCl (Flomax) 0.4 mg PO BID [facility] Last Admin: 03/07/18 21:02 Dose: 0.4 mg
[2018-03-08] MEDS: Sodium Chloride 0.9% 1,000 ML IV SCH (01:22)
[2018-03-08] MEDS: Amiodarone HCl 150 MG, Admixture Fee 1 EACH in Dextrose 5% in Water 100 ML IVPB SCH ×2 (04:14→05:26)
[2018-03-08] MEDS: Piperacillin/Tazobactam 3.375 GM in Sodium Chloride 0.9% 100 ML IVPB SCH ×4 (04:23→21:40)
[2018-03-08 05:10] LABS: Band 5 % (5-11); Eosinophils 1 % (0-10); Hemoglobin 8.3 g/dL (14.0-18.0); Lymphocytes 14 % (21-51); MDiff Complete? YES; Mean Corpuscular HGB CONC 35.1 g/dL (32.0-36.0); Mean Corpuscular Hemoglobin 33.6 pg (27.0-31.0); Mean Corpuscular Volume 95.8 fL (78.0-98.0); Mean Platelet Volume 7.8 fL (7.4-10.4); Monocytes 5 % (0-10); Neutrophil 75 % (42-75); Nucleated RBC 1 % (0); PLT Morphology Comment Appears Decreased; Platelet Count 37 thou/uL (130-400); RBC Distribution Width 14.8 % (11.5-14.5); Red Blood Cell (RBC) Count 2.47 mill/uL (4.70-6.10); White Blood Cell (WBC) Count 6.1 thou/uL (4.8-10.8)
[2018-03-08 05:13] LABS: ALT (SGPT) 14 U/L (8-55); AST (SGOT) 60 U/L (5-34); Alkaline Phosphatase 57 U/L (40-150); Anion Gap 17 mmol/L (10-20); BUN (Urea Nitrogen) 22 mg/dL (8.4-25.7); Bilirubin, Total 0.6 mg/dL (0.2-1.2); Calc. Creatinine Clearance 52 mL/min (70-130); Calcium 8.7 mg/dL (7.8-10.44); Carbon Dioxide 23 mmol/L (23-31); Chloride 102 mmol/L (98-107); Estimated GFR-MDRD 51; Globulin 4.2 g/dL (2.4-3.5); Glucose 139 mg/dL (80-115); Magnesium 1.8 mg/dL (1.6-2.6); Potassium 3.9 mmol/L (3.5-5.1); Protein, Total 7.2 g/dL (5.8-8.1); Sodium 138 mmol/L (136-145)
[2018-03-08] MEDS: Amiodarone HCl 450 MG, Admixture Fee 1 EACH in Dextrose 5% in Water 250 ML IVPB SCH ×2 (05:55→20:39)
[2018-03-08] MEDS ORDERED: Furosemide 20 MG/2 ML VIAL SLOW IVP SCH ×3 (08:00→21:30)
[2018-03-08] MEDS: Polyethylene Glycol 3350 17 GM Packet PO SCH ×2 (08:05→22:53)
[2018-03-08] MEDS: Senokot S 8.6-50 MG TAB PO SCH ×2 (08:06→22:54)
[2018-03-08] MEDS: Aspirin 81 mg Enteric Coated Tablet PO SCH (08:09)
[2018-03-08] MEDS: Amiodarone 200 MG TAB PO SCH (08:11)
[2018-03-08] MEDS: Tamsulosin HCl 0.4 MG CAP PO SCH ×2 (08:11→21:39)
[2018-03-08] MEDS: Dexamethasone 4 MG TAB PO SCH (08:12)
[2018-03-08] MEDS: Famotidine 20 MG TAB PO SCH (08:12)
--- NOTE | 2018-03-08 08:33 | RAD ---
CHEST 1 VIEW: Date: 03/08/18 HISTORY: 72-year-old male with history of shortness of breath. COMPARISON: 03/03/18. FINDINGS: There are new bilateral interstitial and alveolar parenchymal changes involving the right upper mid l gera zone and left mid and lower lung zones, as well as some bilateral vascular congestion. Developing bilateral pneumonia is a consideration. Potentially, these changes could represent some bilateral as piration. IMPRESSION: New developing confluent parenchymal changes in the right mid and upper lung zone, and left mid and l ower lung zone, with bilateral vascular congestion and costophrenic angle blunting. Continue short-te rm follow-up for clearing or stability. CODE T POS: BONIFACIO
[2018-03-08] MEDS ORDERED: Sodium Chloride 0.9% 1,000 ML IV SCH (09:00)
[2018-03-08] MEDS ORDERED: Digoxin 0.5 MG/2 ML AMP SLOW IVP SCH (09:30)
[2018-03-08 10:18] LABS: Troponin I 1.883 ng/mL (< 0.028)
[2018-03-08] MEDS ORDERED: Diltiazem 125 MG in Sodium Chloride 0.9% 100 ML IVPB SCH (11:00)
--- NOTE | 2018-03-08 11:05 | PDOC.CTH ---
<Dodie Castillo - Last Filed: 03/08/18 11:03> Cardiology Progress Note - Subjective the pt seen and examined. No overnight events. No cardiac complaints. - Objective Vital Signs Temp Pulse Resp BP Pulse Ox 03/08/18 09:37 97 03/08/18 08:01 90 L 03/08/18 08:00 98.6 F 127 H 30 H 117/56 L 92 L 03/08/18 07:12 88 L 03/08/18 07:09 97 24 H 03/08/18 04:05 93 L 03/08/18 03:36 97.8 F 150 H 20 103/58 L 88 L 03/08/18 02:28 112 H 24 H 91 L 03/07/18 23:56 98.1 F 125 H 20 129/59 L Admit Weight 160 lb Weight 163 lb 03/07/18 03/08/18 03/09/18 06:59 06:59 06:59 Intake Total 3926 833 1378 Balance 0353 577 3728 - Physical Examination General/Neuro: alert & oriented x3 Neck: no JVD present Lungs: other: (coarses and diminished at bases) Heart: other: (irregular) Abdomen: soft Extremities: other: (No edema) - Telemetry Telemetry Rhythm: Afib HR 110-150s - Labs Result Diagrams: 03/08/18 04:21 03/08/18 04:21 Troponin/CKMB CK-MB (CK-2) 2.7 ng/mL (0-6.6) 03/03/18 13:46 Troponin I 1.883 ng/mL (< 0.028) H* 03/08/18 09:26 - Assessment/Plan 1. Afib with RVR - Cont. elevated HR 110-150s with Amiodarone 0.5mg/min, Dig 0.5mg IV push and Diltiazem 5mg IV push at 0930. BP have been 140-150s per RN. Start Diltiazem IV 5mg/h; not on Bblocker due to hx of COPD ex. On ASA 81mg qd but Not on OAC due to low Platelete level. 2. Staph bacteremia - on IV antibiotics; managed by ID/PCP 3. Aspiration PNA - IV antibiotics; managed by PCP 4. Chronic systolic HF - Echo on 07/14/18 showed EF 35-40%, mild dilated LA, mild AR, mod , mod MR, mild TR. 5. COPD 2/2 smoking - Per Dr Purcell's OV note, he is smoker and on ProAir at home. 6. 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 seizure - MAR reviewed Review of Systems - Review of Systems Constitutional: reports: weakness EENTM: reports: no symptoms reported Respiratory: reports: shortness of breath Cardiac (ROS): reports: no symptoms reported ABD/GI: reports: no symptoms reported : reports: no symptoms reported <Katie Ashley - Last Filed: 03/09/18 22:24> Cardiology Progress Note - Objective Vital Signs Temp Pulse Resp BP Pulse Ox 03/09/18 19:36 97.9 F 100 18 177/70 H 92 L 03/09/18 19:30 97.9 F 100 18 93 L 03/09/18 18:57 109 H 33 H 98 03/09/18 15:30 97.6 F 108 H 34 H 158/69 H 95 03/09/18 14:18 106 H 31 H 98 03/09/18 14:17 107 H 25 H 98 03/09/18 12:43 97 03/09/18 12:30 103 H 25 H 98 03/09/18 12:28 103 H 26 H 98 03/09/18 11:07 98.0 F 24 H 100 Admit Weight 160 lb Weight 157 lb 12.8 oz 03/08/18 03/09/18 03/10/18 06:59 06:59 06:59 Intake Total 540 2660 350 Output Total 1700 Balance 540 960 350 - Labs Result Diagrams: 03/09/18 03:25 03/09/18 03:25 Troponin/CKMB CK-MB (CK-2) 2.7 ng/mL (0-6.6) 03/03/18 13:46 Troponin I 1.928 ng/mL (< 0.028) H* 03/08/18 12:40 - Assessment/Plan Pt. was seen and eval. by me. I have discussed the pt. and agree with the A/P by the SHEKHAR Castillo.
[2018-03-08 12:57] LABS: Fibrinogen 590 mg/dL (253-463)
[2018-03-08 12:58] LABS: INR-International Normal Ratio 1.6; PTT 36.4 SEC (22.9-36.1); Prothrombin Time 18.8 SEC (12.0-14.7)
[2018-03-08 13:17] LABS: FSP-Qualitative Normal (Normal); Platelet Count 40 thou/uL (130-400)
[2018-03-08 13:21] LABS: Troponin I 1.928 ng/mL (< 0.028)
[2018-03-08] MEDS: Digoxin 0.5 MG/2 ML AMP SLOW IVP SCH ×2 (14:05→21:27)
[2018-03-08 14:39] LABS: Vancomycin, Trough 22.4 ug/mL
[2018-03-08] MEDS ORDERED: Vancomycin HCl 1.5 GM in Sodium Chloride 0.9% 250 ML 300 ML IVPB SCH (15:00)
--- NOTE | 2018-03-08 16:08 | PRG ---
DATE OF SERVICE: 03/08/2018 SUBJECTIVE: Patient was seen and examined at bedside and overnight events noted. Patient denies any shortness of breath or chest pain or palpitation. No history of nausea or vomiting or diarrhea or f ever or chills or cramps. OBJECTIVE: General: This is an elderly male in no apparent distress Vital Signs: Temperature 98.5, pulse 130, respiratory rate 18, and blood pressure 117/53. HEENT: Atraumatic, normocephalic, Oral mucosa is moist. Neck: Supple. Cardiovascular: S1 and S2 heard. Rate and rhythm regular. Respiratory: Clear to auscultation. Gastrointestinal: Abdomen is soft. Musculoskeletal: No tenderness, No edema. Dermatologic: No skin rash. Neurologic: Alert and awake and oriented x3. No focal neurologic deficits. Moving all the extremit ies. Psychiatric: Mood and affect normal. LABORATORY DATA: Potassium is 3.9, BUN is 22, creatinine is 1.37. ASSESSMENT AND PLAN: 1. Hyponatremia, better. 2. Edema, controlled. 3. Hypercalcemia is better. 4. Anemia. 5. Proteinuria. 6. Multiple myeloma. Follow up with Oncology. 7. Creatinine is going up, I would like to use some IV fluids, but patient had some shortness of raymond ath, fluid overload and I ask to give on Lasix. We will monitor renal function. Avoid nephrotoxins.
--- NOTE | 2018-03-08 17:39 | PDOC.PN ---
- Subjective Encounter Start Date: 03/08/18 Encounter Start Time: 10:00 Patient seen and examined. Events noted - Started back on Amiodarone drip for A flutter. SOB +. Feels gen weak - Objective Resuscitation Status: Resuscitation Status FULL:Full Resuscitation MAR Reviewed: Yes Vital Signs & Weight: Vital Signs (12 hours) Temp Pulse Pulse Pulse Resp BP BP 03/08/18 15:14 98.6 F 133 H 35 H 03/08/18 14:05 138 H 03/08/18 11:44 98.5 F 138 H 30 H 03/08/18 09:56 110 H 104 H 148/60 H 155/66 H 03/08/18 09:37 97 03/08/18 08:01 03/08/18 08:00 98.6 F 127 H 30 H 03/08/18 07:12 03/08/18 07:09 97 24 H BP Pulse Ox 03/08/18 15:14 105/52 L 93 L 03/08/18 14:05 03/08/18 11:44 117/56 L 93 L 03/08/18 09:56 03/08/18 09:37 03/08/18 08:01 90 L 03/08/18 08:00 117/56 L 92 L 03/08/18 07:12 88 L 03/08/18 07:09 Weight Admit Weight 160 lb Weight 163 lb I&O: 03/07/18 03/08/18 03/09/18 06:59 06:59 06:59 Intake Total 1287 907 8118 Balance 0212 755 8798 Result Diagrams: 03/08/18 12:40 03/08/18 04:21 EKG Reviewed by me: Yes (Tele Afib with RVR) Phys Exam - Physical Examination Pt in mild resp distress Respiratory: no wheezing Bibasilar rales with rhonchi Cardiovascular: no rub, irregular Gastrointestinal: soft, non-tender, positive bowel sounds Musculoskeletal: no edema Neurological: non-focal, moves all 4 limbs Psychiatric: A&O x 3 Dx/Plan - Plan PT/OT, DVT proph w/SCDs IMPRESSION: 1. Gen weakness - multifactorial 2. Staph bacteremia - Coag negat 3. Electrolyte imbalance -severe hyponatremia and hypercalcemia s/p Calcitonin/ Zometa. 4. Aspiration pneumonia. on Atbx 5. New onset Afib with RVR - on Amiodarone - not a candidate for anticoag 6. Chronic systolic HF - EF - 40 % / Elevated troponins, probably secondary to demand ischemia. 7. Multiple myeloma - started on Dexamethasone, s/p bone marrow - results pending 8. Pancytopenia/Hypertension/Hyperlipidemia/Seizure disorder - on Depakote/ Decubitus ulcer, stage 2 over the gluteal region present on admission/Carotid stenosis status post recent right carotid endarterectomy/Coronary artery disease /Chronic pain syndrome on hydrocodone/Moderate Protein Calorie Malnutrition/ Fecal impaction - resolved PLAN: -Cont Amiodarone, Digoxin started, Monitor troponins -Get CXR, DC IVF, Lasix 20 mg IV x 1, IVF dced. -Check DIC panel, Monitor platelets, -Cardio following, Oncology/Nephrology following, -Cont Vancomycin/Zosyn, On Dexamethasone per Oncology, -AM labs, Cont other current meds as below, Monitor platelets Review of Systems - Medications/Allergies Allergies/Adverse Reactions: Allergies Allergy/AdvReac Type Severity Reaction Status Date / Time No Known Allergies Allergy Verified 03/03/18 19:17 Medications: Current Medications Acetaminophen (Tylenol) 650 mg PO Q4H PRN PRN Reason: Headache/Fever or Pain Hydrocodone Bitart/Acetaminophen ([place] 5/325) 1 tab PO Q4H PRN PRN Reason: Moderate Pain (4-6) Last Admin: 03/07/18 21:04 Dose: 1 tab Albuterol/Ipratropium (Duoneb) 3 ml NEB [id number] [facility] Last Admin: 03/08/18 14:57 Dose: Not Given Albuterol/Ipratropium (Duoneb) 3 ml NEB Q2H PRN PRN Reason: SOB &/or Wheezing Aspirin (Ecotrin) 81 mg PO DAILY [facility] Last Admin: 03/08/18 08:09 Dose: 81 mg Atorvastatin Calcium (Lipitor) 40 mg PO QPM [facility] Last Admin: 03/07/18 21:02 Dose: 40 mg Bisacodyl (Dulcolax) 10 mg [place] Q24H PRN PRN Reason: Constipation Calcium Carbonate (Tums) 1,000 mg PO Q4H PRN PRN Reason: Heartburn or Indigestion Clonidine (Catapres) 0.1 mg PO Q4H PRN PRN Reason: Systolic BP > 180 Coenzyme Q10 (Coenzyme Q10) 100 mg PO QPM [facility] Last Admin: 03/07/18 21:00 Dose: 100 mg Dexamethasone (Decadron) 40 mg PO QAM-[facility] Stop: 03/10/18 08:01 Last Admin: 03/08/18 08:12 Dose: 40 mg Digoxin (Lanoxin) 0.25 mg SLOW IVP 1530,2130 [facility] Stop: 03/08/18 21:31 Last Admin: 03/08/18 14:05 Dose: 0.25 mg Divalproex Sodium (Depakote) 1,500 mg PO QPM [facility] Last Admin: 03/07/18 21:00 Dose: 1,500 mg Famotidine (Pepcid) 20 mg PO DAILY [facility] Last Admin: 03/08/18 08:12 Dose: 20 mg Finasteride (Proscar) 5 mg PO QPM [facility] Last Admin: 03/07/18 21:07 Dose: 5 mg Folic Acid (Folvite) 1 mg PO QPM [facility] Last Admin: 03/07/18 21:12 Dose: 1 mg Hydralazine HCl (Apresoline) 5 mg SLOW IVP Q4H PRN PRN Reason: SBP Greater Than 180 Piperacillin Sod/Tazobactam (Sod 3.375 gm/ Sodium Chloride) 100 mls @ 200 mls/ hr IVPB 0300,0900,1500,2100 [facility] Last Admin: 03/08/18 14:05 Dose: 100 mls Amiodarone HCl 450 mg/Miscellaneous Medication 1 each/ Dextrose/Water 259 mls @ 16 mls/hr IVPB INF [facility]; As Directed PRN Reason: Protocol Last Admin: 03/08/18 05:55 Dose: 259 mls Diltiazem HCl 125 mg/ Sodium (Chloride) 125 mls @ 7.5 mls/hr IVPB INF [facility]; 7.5 MG/HR PRN Reason: Protocol Vancomycin HCl 1.5 gm/ Sodium (Chloride) 300 mls @ 200 mls/hr IVPB 1500 [facility] Last Admin: 03/08/18 15:22 Dose: 300 mls Magnesium Hydroxide (Milk Of Magnesium) 30 ml PO DAILYPRN PRN PRN Reason: Constipation Miscellaneous Medication (Pharmacy To Dose) 1 each IVPB ASDIR [facility] Nitroglycerin (Nitrostat) 0.4 mg PO Q5MIN PRN PRN Reason: Chest Pain Ondansetron HCl (Zofran Odt) 4 mg PO Q6H PRN PRN Reason: Nausea/Vomiting Ondansetron HCl (Zofran) 4 mg IVP Q6H PRN PRN Reason: Nausea/Vomiting Polyethylene Glycol (Miralax) 17 gm PO BID [facility] Last Admin: 03/08/18 08:05 Dose: Not Given Pyridoxine HCl (Vitamin B 6) 100 mg PO QPM [facility] Last Admin: 03/07/18 21:13 Dose: 100 mg Senna/Docusate Sodium (Senokot S) 2 tab PO BID [facility] Last Admin: 03/08/18 08:06 Dose: Not Given Sodium Chloride (Flush - Normal Saline) 10 ml IVF Q12HR [facility] Last Admin: 03/08/18 08:13 Dose: 10 ml Sodium Chloride (Flush - Normal Saline) 10 ml IVF PRN PRN PRN Reason: Saline Flush Tamsulosin HCl (Flomax) 0.4 mg PO BID [facility] Last Admin: 03/08/18 08:11 Dose: 0.4 mg
[2018-03-08] MEDS ORDERED: Furosemide 40 MG/4 ML VIAL ONE ×2 (20:02→21:29)
[2018-03-08] MEDS ORDERED: Polyethylene Glycol 3350 17 GM Packet PO PRN (21:32)
[2018-03-08] MEDS ORDERED: Senokot S 8.6-50 MG TAB PO PRN (21:32)
[2018-03-08] MEDS: Atorvastatin Calcium 40 MG TAB PO SCH (21:38)
[2018-03-08] MEDS: Folic Acid 1 MG TAB PO SCH (21:38)
[2018-03-08] MEDS: Finasteride 5 MG TAB PO SCH (21:38)
[2018-03-08] MEDS: Divalproex Sodium DR 500 MG TAB PO SCH (21:38)
[2018-03-08] MEDS: pyridOXINE 50 MG (B6) TAB PO SCH (21:38)
[2018-03-08] MEDS: Ubidecarenone 50 MG CAP PO SCH (21:39)
[2018-03-08 22:09] LABS: Actual Bicarbonate (HCO3a) 17.7 mEq/L (22-28); Base Excess (BEa) -5.1 mEq/L (-2.0 to +3.0); CO2 Tension 26.7 mmHg (35.0-45.0); pH, Arterial 7.44 (7.35-7.45)
[2018-03-08 22:10] LABS: ALV-art Gradient 605.625 (0-20); Hemoglobin (Hb) 12.4 g/dL (14.0-18.0); Puncture Site RBRACH
[2018-03-09] MEDS: Piperacillin/Tazobactam 3.375 GM in Sodium Chloride 0.9% 100 ML IVPB SCH ×2 (03:42→08:49)
[2018-03-09 04:14] LABS: Anion Gap 17 mmol/L (10-20); BUN (Urea Nitrogen) 36 mg/dL (8.4-25.7); Calc. Creatinine Clearance 48 mL/min (70-130); Calcium 8.6 mg/dL (7.8-10.44); Carbon Dioxide 24 mmol/L (23-31); Chloride 102 mmol/L (98-107); Estimated GFR-MDRD 46; Glucose 129 mg/dL (80-115); Magnesium 1.8 mg/dL (1.6-2.6); Potassium 4.3 mmol/L (3.5-5.1); Sodium 139 mmol/L (136-145)
[2018-03-09 04:51] LABS: Band 4 % (5-11); Hemoglobin 7.2 g/dL (14.0-18.0); Hypochromia SLIGHT = 6-15 cells (100X) (0-5/hpf); Lymphocytes 11 % (21-51); MDiff Complete? YES; Mean Corpuscular HGB CONC 34.2 g/dL (32.0-36.0); Mean Corpuscular Hemoglobin 32.9 pg (27.0-31.0); Mean Corpuscular Volume 95.9 fL (78.0-98.0); Mean Platelet Volume 8.5 fL (7.4-10.4); Metamyelocyte 2 % (0-0); Neutrophil 83 % (42-75); PLT Morphology Comment Appears Decreased; Platelet Count 37 thou/uL (130-400); RBC Distribution Width 14.8 % (11.5-14.5); Red Blood Cell (RBC) Count 2.18 mill/uL (4.70-6.10); White Blood Cell (WBC) Count 7.9 thou/uL (4.8-10.8)
[2018-03-09] MEDS: Aspirin 81 mg Enteric Coated Tablet PO SCH (08:50)
[2018-03-09] MEDS: Dexamethasone 4 MG TAB PO SCH (08:50)
[2018-03-09] MEDS: Famotidine 20 MG TAB PO SCH (08:50)
[2018-03-09] MEDS: Tamsulosin HCl 0.4 MG CAP PO SCH ×2 (08:50→19:58)
[2018-03-09] MEDS ORDERED: Cefepime 1 GM in Sodium Chloride 0.9% 100 ML IVPB SCH (10:00)
[2018-03-09] MEDS: Amiodarone HCl 450 MG, Admixture Fee 1 EACH in Dextrose 5% in Water 250 ML IVPB SCH (12:05)
[2018-03-09] MEDS: Diltiazem 125 MG in Sodium Chloride 0.9% 100 ML IVPB SCH (12:06)
--- NOTE | 2018-03-09 12:53 | PRG ---
DATE OF SERVICE: 03/09/2018 SUBJECTIVE: Patient was seen and examined at bedside and overnight events noted. Patient denies any shortness of breath or chest pain or palpitation. No history of nausea or vomiting or diarrhea or f ever or chills or cramps. OBJECTIVE: GENERAL: This is an elderly male in no apparent distress. VITAL SIGNS: Temperature 98.0, pulse 96, respiratory rate 24, blood pressure 114/47. HEENT: Atraumatic, normocephalic. Oral mucosa is moist. NECK: Supple. CARDIOVASCULAR: S1, S2 heard. Rate and rhythm regular. RESPIRATORY: Clear to auscultation. GASTROINTESTINAL: Abdomen is soft. MUSCULOSKELETAL: No tenderness. No edema. DERMATOLOGIC: No skin rash. NEUROLOGIC: Alert and awake and oriented x3. No focal neurologic deficits. Moving all the extremiti es. PSYCHIATRIC: Mood and affect normal. LABORATORY DATA: BUN 36, creatinine 1.5, sodium 139, calcium is 8.6. ASSESSMENT AND PLAN: 1. Hyponatremia, better. 2. Hypercalcemia, better. 3. Edema, controlled. 4. Acute kidney injury. Would recommend IV fluids if tolerated with close monitoring of cardiorespi ratory status. We will follow. Avoid nephrotoxins. 5. Multiple myeloma. Follow with Oncology.
[2018-03-09] MEDS ORDERED: Dexamethasone 40 MG in Sodium Chloride 0.9% 50 ML IVPB SCH (14:00)
[2018-03-09] MEDS ORDERED: Pantoprazole 40 MG VIAL IVP SCH (14:00)
--- NOTE | 2018-03-09 14:52 | PDOC.PN ---
- Subjective Encounter Start Date: 03/09/18 Encounter Start Time: 13:30 Patient seen and examined for resp failure/Sepsis. Overnight events noted. Started on NIPPV. No overnight events - Objective Resuscitation Status: Resuscitation Status FULL:Full Resuscitation MAR Reviewed: Yes Vital Signs & Weight: Vital Signs (12 hours) Temp Pulse Resp BP Pulse Ox 03/09/18 14:18 106 H 31 H 98 03/09/18 14:17 107 H 25 H 98 03/09/18 12:43 97 03/09/18 12:30 103 H 25 H 98 03/09/18 12:28 103 H 26 H 98 03/09/18 11:07 98.0 F 24 H 100 03/09/18 08:44 96 27 H 100 03/09/18 08:43 96 23 H 100 03/09/18 08:00 98.1 F 96 27 H 99 03/09/18 07:40 98.1 F 108 H 18 144/59 H 100 03/09/18 04:00 98 F 104 H 18 147/65 H 100 Weight Admit Weight 160 lb Weight 157 lb 12.8 oz Most Recent Monitor Data Heart Rate from ECG 103 NIBP 148/47 I&O: 03/08/18 03/09/18 03/10/18 06:59 06:59 06:59 Intake Total 540 2660 350 Output Total 1700 Balance 540 960 350 Result Diagrams: 03/09/18 03:25 03/09/18 03:25 EKG Reviewed by me: Yes (Tele Afib RVR) Phys Exam - Physical Examination on NIPPV Respiratory: no wheezing B/L rhonchi with bibasilar rales Cardiovascular: no rub, irregular Gastrointestinal: soft, non-tender, positive bowel sounds Musculoskeletal: no edema Neurological: non-focal, moves all 4 limbs Dx/Plan - Plan DVT proph w/SCDs IMPRESSION: 1. Acute hypoxic resp failure - s/p NIPPV 2. Afib with RVR - on Amiodarone/Digoxin/Cardizem- not a candidate for anticoag 3. 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 Anemia - prob due to Multiple myeloma 5. Electrolyte imbalance -severe hyponatremia and hypercalcemia s/p Calcitonin/ Zometa. 6. Aspiration pneumonia. on Atbx 7. Staph bacteremia - Coag negat - on Vanc/Zosyn 8. Chronic systolic HF - EF - 40 % / Elevated troponins, probably secondary to demand ischemia. 9. Multiple myeloma - started on Dexamethasone, s/p bone marrow - results pending 10. Pancytopenia/Hypertension/Hyperlipidemia/Seizure disorder - on Depakote/ Decubitus ulcer, stage 2 over the gluteal region present on admission/Carotid stenosis status post recent right carotid endarterectomy/Coronary artery disease /Chronic pain syndrome on hydrocodone/Moderate Protein Calorie Malnutrition/ Fecal impaction - resolved/Gen weakness - multifactorial PLAN: Cont NIPPV Transfuse 1 unit PRBC (I confirmed with Oncology) DC Vanc/Zosyn due to worsening thrombocytopenia Start Cefepime Check Peripheral smear and reticulocyte count in AM Cont Amiodarone/Digoxin/Cardizem per Cardiology Dexamethasone IVPB today while on NIPPV AM labs Cont other current meds as below Review of Systems - Review of Systems Respiratory: negative: Cough, Dry, Shortness of Breath, Hemoptysis, SOB with Excertion, Pleuritic Pain, Sputum, Wheezing Cardiovascular: negative: chest pain, palpitations, orthopnea, paroxysmal nocturnal dyspnea, edema, light headedness, other - Medications/Allergies Allergies/Adverse Reactions: Allergies Allergy/AdvReac Type Severity Reaction Status Date / Time No Known Allergies Allergy Verified 03/03/18 19:17 Medications: Current Medications Acetaminophen (Tylenol) 650 mg PO Q4H PRN PRN Reason: Headache/Fever or Pain Hydrocodone Bitart/Acetaminophen ([place] 5/325) 1 tab PO Q4H PRN PRN Reason: Moderate Pain (4-6) Last Admin: 03/07/18 21:04 Dose: 1 tab Albuterol/Ipratropium (Duoneb) 3 ml NEB [id number] [facility] Last Admin: 03/09/18 14:17 Dose: 3 ml Albuterol/Ipratropium (Duoneb) 3 ml NEB Q2H PRN PRN Reason: SOB &/or Wheezing Aspirin (Ecotrin) 81 mg PO DAILY [facility] Last Admin: 03/09/18 08:50 Dose: Not Given Atorvastatin Calcium (Lipitor) 40 mg PO QPM [facility] Last Admin: 03/08/18 21:38 Dose: Not Given Bisacodyl (Dulcolax) [address] Q24H PRN PRN Reason: Constipation Calcium Carbonate (Tums) 1,000 mg PO Q4H PRN PRN Reason: Heartburn or Indigestion Clonidine (Catapres) 0.1 mg PO Q4H PRN PRN Reason: Systolic BP > 180 Coenzyme Q10 (Coenzyme Q10) 100 mg PO QPM [facility] Last Admin: 03/08/18 21:39 Dose: Not Given Cyanocobalamin (Vitamin B-12) 1,000 mcg PO DAILY [facility] Dexamethasone (Decadron) 40 mg PO [facility] Stop: 03/10/18 08:01 Last Admin: 03/09/18 08:50 Dose: Not Given Divalproex Sodium (Depakote) 1,500 mg PO QPM [facility] Last Admin: 03/08/18 21:38 Dose: Not Given Finasteride (Proscar) 5 mg PO QPM [facility] Last Admin: 03/08/18 21:38 Dose: Not Given Folic Acid (Folvite) 1 mg PO QPM [facility] Last Admin: 03/08/18 21:38 Dose: Not Given Hydralazine HCl (Apresoline) 5 mg SLOW IVP Q4H PRN PRN Reason: SBP Greater Than 180 Amiodarone HCl 450 mg/Miscellaneous Medication 1 each/ Dextrose/Water 259 mls @ 16 mls/hr IVPB INF [facility]; As Directed PRN Reason: Protocol Last Admin: 03/09/18 12:05 Dose: 259 mls Diltiazem HCl 125 mg/ Sodium (Chloride) 125 mls @ 7.5 mls/hr IVPB INF [facility]; 7.5 MG/HR PRN Reason: Protocol Last Admin: 03/09/18 12:06 Dose: 125 mls Cefepime HCl 1 gm/ Sodium (Chloride) 100 mls @ 200 mls/hr IVPB 2100 [facility] Dexamethasone 40 mg/ Sodium (Chloride) 60 mls @ 100 mls/hr IVPB NOW [facility] Stop: 03/09/18 18:00 Last Admin: 03/09/18 14:41 Dose: 60 mls Magnesium Hydroxide (Milk Of Magnesium) 30 ml PO DAILYPRN PRN PRN Reason: Constipation Miscellaneous Medication (Pharmacy To Dose) 1 each IVPB PRN PRN PRN Reason: Pharmacy to dose Nitroglycerin (Nitrostat) 0.4 mg PO Q5MIN PRN PRN Reason: Chest Pain Ondansetron HCl (Zofran Odt) 4 mg PO Q6H PRN PRN Reason: Nausea/Vomiting Ondansetron HCl (Zofran) 4 mg IVP Q6H PRN PRN Reason: Nausea/Vomiting Pantoprazole Sodium (Protonix) 40 mg IVP DAILY [facility] Pantoprazole Sodium (Protonix) 40 mg IVP NOW [facility] Stop: 03/09/18 16:00 Last Admin: 03/09/18 14:41 Dose: 40 mg Polyethylene Glycol (Miralax) 17 gm PO BIDPRN PRN PRN Reason: Constipation Polyethylene Glycol (Miralax) 17 gm PO DAILY [facility] Pyridoxine HCl (Vitamin B 6) 100 mg PO QPM [facility] Last Admin: 03/08/18 21:38 Dose: Not Given Senna/Docusate Sodium (Senokot S) 1 tab PO BID [facility] Sodium Chloride (Flush - Normal Saline) 10 ml IVF Q12HR [facility] Last Admin: 03/09/18 08:49 Dose: 10 ml Sodium Chloride (Flush - Normal Saline) 10 ml IVF PRN PRN PRN Reason: Saline Flush Tamsulosin HCl (Flomax) 0.4 mg PO BID [facility] Last Admin: 03/09/18 08:50 Dose: Not Given
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
[2018-03-09] MEDS: Divalproex Sodium DR 500 MG TAB PO SCH (19:57)
[2018-03-09] MEDS: Atorvastatin Calcium 40 MG TAB PO SCH (19:57)
[2018-03-09] MEDS: Senokot S 8.6-50 MG TAB PO SCH (19:57)
[2018-03-09] MEDS: pyridOXINE 50 MG (B6) TAB PO SCH (19:57)
[2018-03-09] MEDS: Finasteride 5 MG TAB PO SCH (19:57)
[2018-03-09] MEDS: Folic Acid 1 MG TAB PO SCH (19:57)
[2018-03-09] MEDS: Ubidecarenone 50 MG CAP PO SCH (19:58)
[2018-03-09] MEDS: Cefepime 1 GM in Sodium Chloride 0.9% 100 ML IVPB SCH (21:00)
[2018-03-10] MEDS: Diltiazem 125 MG in Sodium Chloride 0.9% 100 ML IVPB SCH ×2 (03:27→14:44)
[2018-03-10] MEDS: Amiodarone HCl 450 MG, Admixture Fee 1 EACH in Dextrose 5% in Water 250 ML IVPB SCH ×2 (03:27→14:44)
[2018-03-10 04:03] LABS: Reticulocyte Count 1.8 % (0.5-1.5)
[2018-03-10 04:07] LABS: Hemoglobin 8.2 g/dL (14.0-18.0); Mean Corpuscular HGB CONC 33.8 g/dL (32.0-36.0); Mean Corpuscular Hemoglobin 32.4 pg (27.0-31.0); Mean Corpuscular Volume 95.8 fL (78.0-98.0); Mean Platelet Volume 9.9 fL (7.4-10.4); Platelet Count 23 thou/uL (130-400); RBC Distribution Width 14.7 % (11.5-14.5); Red Blood Cell (RBC) Count 2.53 mill/uL (4.70-6.10); White Blood Cell (WBC) Count 7.9 thou/uL (4.8-10.8)
[2018-03-10 04:29] LABS: Anion Gap 18 mmol/L (10-20); BUN (Urea Nitrogen) 37 mg/dL (8.4-25.7); Calc. Creatinine Clearance 55 mL/min (70-130); Calcium 8.8 mg/dL (7.8-10.44); Carbon Dioxide 23 mmol/L (23-31); Chloride 107 mmol/L (98-107); Estimated GFR-MDRD 57; Glucose 131 mg/dL (80-115); Magnesium 2.3 mg/dL (1.6-2.6); Phosphorus 2.6 mg/dL (2.3-4.7); Potassium 4.3 mmol/L (3.5-5.1); Sodium 144 mmol/L (136-145)
[2018-03-10 04:38] LABS: Band 24 % (5-11); Lymphocytes 14 % (21-51); MDiff Complete? YES; Metamyelocyte 2 % (0-0); Monocytes 2 % (0-10); Neutrophil 58 % (42-75); Nucleated RBC 7 % (0); PLT Morphology Comment Appears Decreased; RBC Morphology Normal
[2018-03-10 05:36] LABS: Folate (Folic Acid) 8.6 ng/mL (7.0-31.4)
--- NOTE | 2018-03-10 08:48 | PRG ---
DATE OF SERVICE: 03/10/2018 The patient says he feels better. He is requesting food. PHYSICAL EXAMINATION: VITAL SIGNS: His temperature is 97.4, pulse 113, respiratory rate 23, O2 saturation 97%, blood press ure 151/72. HEENT: Unremarkable. NECK: Without adenopathy, JVD, or bruits. LUNGS: Lungs have diffuse crackles. CARDIAC: S1 and S2 regular. ABDOMEN: Soft. EXTREMITIES: Trace edema. LABORATORY DATA: White blood cell count 7.9, hematocrit 24.2, platelet count 23. Sodium 144, potass ium 4.3, chloride 107, CO2 23, BUN 37, creatinine 1.3, glucose 131. ASSESSMENT: 1. Bilateral pneumonia. 2. Acute respiratory failure requiring BiPAP. PLAN: 1. The patient has been off BiPAP since about 30 minutes ago and seems to be doing better. 2. Atrial fibrillation. 3. Possible myeloma - bone marrow biopsy pending. 4. Severe anemia. 5. Thrombocytopenia. PLAN: Continue the IV antibiotics, BiPAP as needed, and further workup for multiple myeloma. Hopefu lly, we will be able to increase the patient's activity. He needs to remain in the [facility] for now.
[2018-03-10] MEDS: Pantoprazole 40 MG VIAL IVP SCH (10:47)
--- NOTE | 2018-03-10 12:49 | PRG ---
DATE OF SERVICE: 03/10/2018 SUBJECTIVE: This is a 72-year-old gentleman, being seen for acute kidney injury. The patient denies any nausea, vomiting, or chest pain. OBJECTIVE: See above. GENERAL: Patient is awake, alert. VITAL SIGNS: Afebrile, pulse 90, breathing at 16, blood pressure 136/61. GENERAL APPEARANCE AND MENTAL STATUS: Fair. HEAD/NECK: Normocephalic. Atraumatic. EYES: EOMI. No deformity. EARS: Clear. No ulcers. NOSE: Intact. No lesions. MOUTH: Clear. No discharge. THROAT: Clear. No exudate. LUNGS: Clear. No crackles. CARDIAC: S1, S2. No rub. ABDOMEN: Benign. BS+. GENITALIA/RECTUM: Marc absent. BACK/EXTREMITIES: Edema 0+, ulcer. NEUROLOGICAL: Alert and motor intact. SKIN: Rash - bruise. LYMPHATICS: Edema - ulcer. LABORATORY DATA: Labs show hemoglobin 8.2. Creatinine 1.2. ASSESSMENT: 1. Acute kidney injury, improved. 2. Chronic kidney disease, stage 3, stable. 3. Hypertension, stable. 4. Medications based on glomerular filtration rate are appropriate. No indication for dialysis. I will sign off of this patient.
[2018-03-10] MEDS: Dexamethasone 4 MG TAB PO SCH (15:34)
[2018-03-10] MEDS: Aspirin 81 mg Enteric Coated Tablet PO SCH (15:35)
[2018-03-10] MEDS: Senokot S 8.6-50 MG TAB PO SCH ×2 (15:36→20:38)
[2018-03-10] MEDS: Cyanocobalamin (Vitamin B-12) 1,000 MCG TAB PO SCH (15:36)
[2018-03-10] MEDS: Tamsulosin HCl 0.4 MG CAP PO SCH ×2 (15:36→20:38)
[2018-03-10] MEDS: Polyethylene Glycol 3350 17 GM Packet PO SCH (15:36)
[2018-03-10] MEDS ORDERED: Dexamethasone 40 MG in Sodium Chloride 0.9% 50 ML IVPB SCH (15:45)
[2018-03-10] MEDS: Valproate Sodium 500 MG in Sodium Chloride 0.9% 100 ML IVPB SCH (16:12)
[2018-03-10] MEDS: Atorvastatin Calcium 40 MG TAB PO SCH (20:37)
[2018-03-10] MEDS: Ubidecarenone 50 MG CAP PO SCH (20:38)
[2018-03-10] MEDS: Folic Acid 1 MG TAB PO SCH (20:38)
[2018-03-10] MEDS: Finasteride 5 MG TAB PO SCH (20:38)
[2018-03-10] MEDS: pyridOXINE 50 MG (B6) TAB PO SCH (20:38)
[2018-03-10] MEDS: Cefepime 1 GM in Sodium Chloride 0.9% 100 ML IVPB SCH (21:10)
[2018-03-11] MEDS: Amiodarone HCl 450 MG, Admixture Fee 1 EACH in Dextrose 5% in Water 250 ML IVPB SCH (03:09)
[2018-03-11] MEDS: Valproate Sodium 500 MG in Sodium Chloride 0.9% 100 ML IVPB SCH ×2 (03:09→17:40)
[2018-03-11] MEDS: Diltiazem 125 MG in Sodium Chloride 0.9% 100 ML IVPB SCH (03:09)
[2018-03-11 05:08] LABS: Anion Gap 16 mmol/L (10-20); BUN (Urea Nitrogen) 44 mg/dL (8.4-25.7); Calc. Creatinine Clearance 56 mL/min (70-130); Calcium 8.8 mg/dL (7.8-10.44); Carbon Dioxide 24 mmol/L (23-31); Chloride 110 mmol/L (98-107); Estimated GFR-MDRD 58; Glucose 132 mg/dL (80-115); Potassium 4.3 mmol/L (3.5-5.1); Sodium 146 mmol/L (136-145)
[2018-03-11 08:33] LABS: Hemoglobin 8.5 g/dL (14.0-18.0); Mean Corpuscular HGB CONC 35.1 g/dL (32.0-36.0); Mean Corpuscular Hemoglobin 33.7 pg (27.0-31.0); Platelet Count 21 thou/uL (130-400); RBC Distribution Width 14.8 % (11.5-14.5)
[2018-03-11] MEDS ORDERED: Diltiazem 125 MG in Sodium Chloride 0.9% 100 ML IVPB SCH (08:38)
[2018-03-11] MEDS: Polyethylene Glycol 3350 17 GM Packet PO SCH (09:27)
[2018-03-11] MEDS: Aspirin 81 mg Enteric Coated Tablet PO SCH (09:27)
[2018-03-11] MEDS: Cyanocobalamin (Vitamin B-12) 1,000 MCG TAB PO SCH (09:27)
[2018-03-11] MEDS: Tamsulosin HCl 0.4 MG CAP PO SCH (09:28)
[2018-03-11] MEDS: Senokot S 8.6-50 MG TAB PO SCH (09:28)
[2018-03-11] MEDS: Pantoprazole 40 MG VIAL IVP SCH (09:31)
--- NOTE | 2018-03-11 09:31 | PRG ---
DATE OF SERVICE: 03/11/2018 This morning he is back on his BiPAP. Apparently his said he was short of breath. Awaiting Speech. He has a history of traumatic seizure disorder. X-ray shows bilateral pneumonia. He is clearly cachectic. PHYSICAL EXAMINATION: VITAL SIGNS: Sats are 95% on BiPAP, respirations 32, temperature 97, pulse 111, blood pressure 155/5 3. CHEST: Chest revealed decreased breath sounds, no wheezing. CARDIAC: Normal S1, S2, no gallops. ABDOMEN: Soft, no masses. LABORATORY: Platelet count 21,000, H&H 8 and 25, creatinine 1.25. IMPRESSION: 1. Multiple medical problems. 2. Severe thrombocytopenia. 3. Bilateral bronchopneumonia. 4. Renal failure. 5. Thrombocytopenia. PLAN: I have added steroids to his neb treatment. Chest x-ray is being ordered. He may have multiple myeloma based on his hypercalcemia and his elevated and lytic lesion. I will follow. We will discuss with family the code status.
[2018-03-11 09:36] LABS: Band 19 % (5-11); Lymphocytes 9 % (21-51); MDiff Complete? YES; Metamyelocyte 4 % (0-0); Monocytes 1 % (0-10); Myelocyte 3 % (0-0); Neutrophil 62 % (42-75); Nucleated RBC 5 % (0); PLT Morphology Comment Appears Decreased; Polychromasia MODERATE = 3-4 cells (100X) (0-2/hpf); Reactive Lymphocytes 1 % (0-10); Red Blood Cell (RBC) Count 2.51 mill/uL (4.70-6.10); White Blood Cell (WBC) Count 8.1 thou/uL (4.8-10.8)
--- NOTE | 2018-03-11 10:10 | RAD ---
CHEST 1 VIEW: HISTORY: Dyspnea. Pneumonia. COMPARISON: 03/08/18. FINDINGS: Cardiac silhouette magnified by projection. Pulmonary vasculature upper limits of normal. Infiltrat es within the right upper lobe and each lower lobe are unchanged in appearance from the prior exam. Mediastinum midline with aortic calcification. No evidence of pneumothorax. Old traumatic defects o f the chest wall and postoperative changes of the shoulders are apparent. cardiac monitor leads over lie the chest. IMPRESSION: Multifocal bilateral infiltrates and other findings are stable. POS: [facility]
--- NOTE | 2018-03-11 10:54 | EKG ---
Test Reason : Blood Pressure : / mmHG Vent. Rate : 118 BPM Atrial Rate : 118 BPM P-R Int : 000 ms QRS Dur : 136 ms QT Int : 324 ms P-R-T Axes : 000 032 266 degrees QTc Int : 454 ms Sinus tachycardia with occasional Premature atrial complexes with premature ventricular or aberrantly conducted complexes Right bundle branch block Abnormal ECG Confirmed by JAMEEL MINOR ([id number]) on 03/11/2018 10:54:43 AM Referred By: IRASEMA Confirmed By:JAMEEL MINOR
--- NOTE | 2018-03-11 11:15 | RAD ---
MODIFIED BARIUM SWALLOW: INDICATIONS: Intracerebral etiology. Dysphagia. Feeding difficulties. TECHNIQUE: The patient was given different consistencies of barium, under fluoroscopic observation. FINDINGS: There is significant swallowing dysfunction. There is premature spillage of thin liquids into the va llecula and piriform sinuses. The piriform sinuses are dilated. There is immediate laryngeal penetr ation and aspiration with thin liquids. Thickened liquids and pudding were handled slightly better, although there will continue to be signif icant pooling. IMPRESSION: Significant swallowing dysfunction with aspiration noted with thin liquids. See speech pathologist's recommendations. POS: [facility]
--- NOTE | 2018-03-11 12:34 | PRG ---
DATE OF SERVICE: 03/10/2018 SUBJECTIVE: Mr. Paul has been diagnosed with IgA myeloma and has been started on Decadron. He has not had a temperature elevation for the past many days, some back pain, no dyspnea, no abdominal yesenia n or diarrhea. OBJECTIVE: VITAL SIGNS: Temperature max 97.5. Other vital signs with mild tachycardia, tachypnea. LUNGS: With symmetric air entry. HEART: S1 and S2, regular rate. ABDOMEN: Soft. The patient has developed atrial fibrillation with RVR and tachypnea. The patient had an echocardiog yvan done on 03/07/2018 with inadequate exam due to rapid heart rate. EF estimated at 40% with modera te aortic stenosis. The white cell count is 8.1, hemoglobin 8.5, platelets down to 21,000, 62% neutr ophils, 19% bands, 9% lymphocytes. A 2/2 sets of blood cultures from 03/03/2018 with coagulase-negat kamla Staph, likely contaminant. Repeat blood culture from 03/08/2018, no growth thus far. A chest x- ray from 03/08/2018 with multifocal bilateral infiltrates. ASSESSMENT AND DISCUSSION: The IgA myeloma, on treatment, coagulase-negative Staphylococcus bacterem ia, likely secondary to contamination of sample, not true bacteremia, bilateral pulmonary infiltrates either secondary to pulmonary edema with atrial fibrillation with rapid ventricular response and dec reased ejection fraction or aspiration pneumonia. Patient on cefepime for that.
--- NOTE | 2018-03-11 14:01 | CT ---
CT GUIDED BONE MARROW ASPIRATION/BONE BIOPSY OF THE LEFT ILIUM: 03/07/18 CLINICAL HISTORY: Myeloma. Compression fractures. PROCEDURE: Informed consent was obtained. The patient was escorted to the procedural suite. Patient was placed i nto an appropriate prone position. Conscious sedation was provided by the radiology nurse, Skye, the patient was monitored accordingly in stable condition throughout the duration of the procedure. The patient's posterior pelvis was prepped and draped in the standard sterile fashion. Topical anesthesia with buffered 1% lidocaine was performed. A small skin incision was made. Deep soft tissue lidocaine administration as well as perosteal lidocaine administration performed. Subsequently, using a [employer] bone biopsy kit, trocar was advanced to the leading edge of the posterior aspect of the left iliac bone. The cortex was then uneventfully penetrated and intramedullary location was confirmed with CT fluoroscopic imaging. Subsequently bone marrow aspirate was performed. Approximately 7 mL of bone mar row aspirate were provided to the fingerprint technician. Afterwards, a bone marrow biopsy of the left ilium was performed. Core specimen was submitted to fingerprint technician was deemed adequate for in terpretation. All the devices were removed from the patient. Patient tolerated the procedure well wit hout evidence of complication. Imaging was stored for documentation. IMPRESSION: 1. Technically successful CT guided marrow aspiration. 2. Technically successful CT guided biopsy of the left ilium. Pathology results pending.
[2018-03-11 14:44] VITALS: BMI 28.8
[2018-03-11] MEDS: HYDROcodone/Acetaminophen 5/325 mg Tablet PO PRN (16:18)
--- NOTE | 2018-03-11 20:36 | PDOC.PN ---
- Subjective Encounter Start Date: 03/11/18 Encounter Start Time: 14:00 Patient seen and examined for resp failure/Afib/Multiple myeloma. Overnight events noted. s/p NIPPV. Failed swallow Eval. - Objective Resuscitation Status: Resuscitation Status DNR:Do Not Resuscitate MAR Reviewed: Yes Vital Signs & Weight: Vital Signs (12 hours) Temp Pulse Pulse Pulse Resp BP BP 03/11/18 18:52 91 32 H 03/11/18 16:00 82 03/11/18 15:00 97.9 F 62 24 H 03/11/18 14:52 114 H 36 H 03/11/18 14:00 113 H 03/11/18 13:00 98 03/11/18 12:00 61 03/11/18 11:10 03/11/18 11:09 104 H 28 H 03/11/18 11:00 97.5 F L 87 22 H 03/11/18 10:18 112 H 110 H 135/66 132/65 03/11/18 10:00 114 H 03/11/18 09:00 BP Pulse Ox Pulse Ox Pulse Ox 03/11/18 18:52 03/11/18 16:00 131/46 L 03/11/18 15:00 139/49 L 90 L 03/11/18 14:52 03/11/18 14:00 129/66 03/11/18 13:00 150/58 H 03/11/18 12:00 141/68 H 03/11/18 11:10 92 L 03/11/18 11:09 92 L 03/11/18 11:00 137/38 L 93 L 03/11/18 10:18 92 L 93 L 03/11/18 10:00 132/65 03/11/18 09:00 133/51 L Weight Admit Weight 160 lb Weight 162 lb 6.4 oz Most Recent Monitor Data Heart Rate from ECG 103 NIBP 148/47 I&O: 03/10/18 03/11/18 03/12/18 06:59 06:59 06:59 Intake Total 736 1165 299 Output Total 600 Balance 136 1165 299 Result Diagrams: 03/11/18 04:37 03/11/18 04:37 EKG Reviewed by me: Yes (Tele Afib with RVR) Phys Exam - Physical Examination Constitutional: NAD Respiratory: no wheezing, no rhonchi Cardiovascular: RRR, no rub Gastrointestinal: soft, non-tender, positive bowel sounds Musculoskeletal: no edema Neurological: moves all 4 limbs Dx/Plan - Plan DVT proph w/SCDs IMPRESSION: 1. Acute hypoxic resp failure - s/p NIPPV 2. Afib with RVR - on Amiodarone/Digoxin/Cardizem- not a candidate for anticoag 3. 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 Anemia - prob due to Multiple myeloma 5. Electrolyte imbalance -severe hyponatremia and hypercalcemia s/p Calcitonin/ Zometa. 6. Aspiration pneumonia. on Atbx 7. Staph bacteremia - Coag negat? contaminant per ID 8. Chronic systolic HF - EF - 40 % / Elevated troponins, probably secondary to demand ischemia. 9. Multiple myeloma - started on Dexamethasone, s/p bone marrow - results pending 10. Pancytopenia/Hypertension/Hyperlipidemia/Seizure disorder - on Depakote/ Decubitus ulcer, stage 2 over the gluteal region present on admission/Carotid stenosis status post recent right carotid endarterectomy/Coronary artery disease /Chronic pain syndrome on hydrocodone/Moderate Protein Calorie Malnutrition/ Fecal impaction - resolved/Gen weakness - multifactorial PLAN: Consult Palliative care Cont current meds as below Cont NIPPV PRN Cont Amiodarone/Digoxin/Cardizem AM labs Cont other current meds as below Review of Systems - Review of Systems Constitutional: weakness, malaise. negative: fever, chills, sweats, other Respiratory: Cough, SOB with Excertion. negative: Dry, Shortness of Breath, Hemoptysis, Pleuritic Pain, Sputum, Wheezing Cardiovascular: palpitations. negative: chest pain, orthopnea, paroxysmal nocturnal dyspnea, edema, light headedness, other Gastrointestinal: negative: Nausea, Vomiting, Abdominal Pain, Diarrhea, Constipation, Melena, Hematochezia, Other - Medications/Allergies Allergies/Adverse Reactions: Allergies Allergy/AdvReac Type Severity Reaction Status Date / Time No Known Allergies Allergy Verified 03/03/18 19:17 Medications: Current Medications Acetaminophen (Tylenol) 650 mg PO Q4H PRN PRN Reason: Headache/Fever or Pain Hydrocodone Bitart/Acetaminophen (Silex 5/325) 1 tab PO Q4H PRN PRN Reason: Moderate Pain (4-6) Last Admin: 03/11/18 16:18 Dose: 1 tab Albuterol/Ipratropium (Duoneb) 3 ml NEB [id number] [facility] Last Admin: 03/11/18 18:52 Dose: 3 ml Albuterol/Ipratropium (Duoneb) 3 ml NEB [id number] PRN PRN Reason: SOB &/or Wheezing Aspirin (Ecotrin) 81 mg PO DAILY [facility] Last Admin: 03/11/18 09:27 Dose: Not Given Atorvastatin Calcium (Lipitor) 40 mg PO QPM [facility] Last Admin: 03/10/18 20:37 Dose: Not Given Bisacodyl (Dulcolax) 10 mg [place] Q24H PRN PRN Reason: Constipation Calcium Carbonate (Tums) 1,000 mg PO Q4H PRN PRN Reason: Heartburn or Indigestion Clonidine (Catapres) 0.1 mg PO Q4H PRN PRN Reason: Systolic BP > 180 Coenzyme Q10 (Coenzyme Q10) 100 mg PO QPM [facility] Last Admin: 03/10/18 20:38 Dose: Not Given Cyanocobalamin (Vitamin B-12) 1,000 mcg PO DAILY [facility] Last Admin: 03/11/18 09:27 Dose: Not Given Divalproex Sodium (Depakote) 1,500 mg PO QPM [facility] Last Admin: 03/09/18 19:57 Dose: Not Given Finasteride (Proscar) 5 mg PO QPM [facility] Last Admin: 03/10/18 20:38 Dose: Not Given Folic Acid (Folvite) 1 mg PO QPM [facility] Last Admin: 03/10/18 20:38 Dose: Not Given Hydralazine HCl (Apresoline) 5 mg SLOW IVP Q4H PRN PRN Reason: SBP Greater Than 180 Amiodarone HCl 450 mg/Miscellaneous Medication 1 each/ Dextrose/Water 259 mls @ 16 mls/hr IVPB INF ESTELA; As Directed PRN Reason: Protocol Last Admin: 03/11/18 03:09 Dose: 259 mls Cefepime HCl 1 gm/ Sodium (Chloride) 100 mls @ 200 mls/hr IVPB 2100 [facility] Last Admin: 03/10/18 21:10 Dose: 100 mls Valproic Acid 500 mg/ Sodium (Chloride) 105 mls @ 100 mls/hr IVPB 0400,1600 [facility] Last Admin: 03/11/18 17:40 Dose: Not Given Diltiazem HCl 125 mg/ Sodium (Chloride) 125 mls @ 5 mls/hr IVPB INF ESTELA; 5 MG/ HR PRN Reason: Protocol Magnesium Hydroxide (Milk Of Magnesium) 30 ml PO DAILYPRN PRN PRN Reason: Constipation Methylprednisolone Sodium Succinate (Solu-Medrol) 40 mg IVP Q6HR [facility] Last Admin: 03/11/18 17:53 Dose: 40 mg Miscellaneous Medication (Pharmacy To Dose) 1 each IVPB PRN PRN PRN Reason: Pharmacy to dose Nitroglycerin (Nitrostat) 0.4 mg PO Q5MIN PRN PRN Reason: Chest Pain Ondansetron HCl (Zofran Odt) 4 mg PO Q6H PRN PRN Reason: Nausea/Vomiting Last Admin: 03/11/18 12:52 Dose: 4 mg Ondansetron HCl (Zofran) 4 mg IVP Q6H PRN PRN Reason: Nausea/Vomiting Pantoprazole Sodium (Protonix) 40 mg IVP DAILY [facility] Last Admin: 03/11/18 09:31 Dose: 40 mg Polyethylene Glycol (Miralax) 17 gm PO BIDPRN PRN PRN Reason: Constipation Polyethylene Glycol (Miralax) 17 gm PO DAILY [facility] Last Admin: 03/11/18 09:27 Dose: Not Given Pyridoxine HCl (Vitamin B 6) 100 mg PO QPM [facility] Last Admin: 03/10/18 20:38 Dose: Not Given Senna/Docusate Sodium (Senokot S) 1 tab PO BID [facility] Last Admin: 03/11/18 09:28 Dose: Not Given Sodium Chloride (Flush - Normal Saline) 10 ml IVF Q12HR [facility] Last Admin: 03/11/18 09:31 Dose: 10 ml Sodium Chloride (Flush - Normal Saline) 10 ml IVF PRN PRN PRN Reason: Saline Flush Tamsulosin HCl (Flomax) 0.4 mg PO BID [facility] Last Admin: 03/11/18 09:28 Dose: Not Given
[2018-03-12 03:39] VITALS: TEMP 97.7
[2018-03-12 03:42] VITALS: BP 136/60
--- NOTE | 2018-03-12 08:20 | DIS ---
DATE OF DISCHARGE: 03/11/2018 DISCHARGE DISPOSITION: Inpatient hospice. BRIEF HOSPITAL COURSE: Patient is a 72-year-old male with coronary artery disease, who presented to the hospital with generalized weakness and inability to ambulate. He also had urinary incontinence o f 1 week. Please refer to the history and physical for further details. The patient was admitted to the intermediate care unit with a diagnosis of generalized weakness with multiple electrolyte imbala nce. He was found to have severe hyponatremia with sodium of 122 and hypercalcemia, with calcium of 12.2. He was started on IV fluids. His sodium gradually improved. On the day of discharge, his sod ium is 146. Hypercalcemia, improved with IV fluid as well. He received zoledronic acid as well as c alcitonin per Nephrology service. Patient also complained of intractable back pain with loss of blad iwona control and difficulty ambulating. For this reason, he had an MRI of the thoracic and the lumbar spine, which showed acute wedge compression abnormality of T12 and L1 along with diffuse metastatic disease. The patient was also seen by Neurosurgery. No surgical intervention was recommended. Due to hypercalcemia, the patient underwent workup for multiple myeloma that was positive. He was found to have 1.9 g/dL M spike. His immunofixation showed free lambda chain. The bone marrow biopsy was c onsistent with multiple myeloma. He was started on Decadron 40 mg daily per Oncology Service. Amari g this hospital stay, patient developed atrial fibrillation with rapid ventricular response. He was seen by Cardiology. He was started on amiodarone drip. Later on Cardizem and digoxin was added. Hi s troponins were found to be elevated with a maximum troponin of 1.9. Patient also had anemia with h emoglobin 7.2 and the lowest platelet of 21. Patient also failed a swallow evaluation. He declined PEG tube. Overall, he continued to decline during this hospital stay. He will be discharged to [facility] per patient request. Plan of care was discussed with the patient and the family in [place]. They stated understanding. IMPRESSION: 1. Acute hypoxic respiratory failure, requiring noninvasive positive pressure ventilation. This hap pened after the atrial fibrillation episode. 2. New diagnosis of multiple myeloma. 3. Atrial fibrillation with rapid ventricular response, not a candidate for anticoagulation. 4. Pancytopenia. Patient has thrombocytopenia, platelet of 21 and anemia. 5. Electrolyte imbalance with severe hyponatremia and hypercalcemia on admission. 6. Aspiration pneumonia, improved. 7. Two of two blood culture positive for coagulase-negative Staphylococcus. He was treated with IV antibiotics. It could be a contaminant as well per Infectious Disease. 8. Acute on chronic systolic heart failure, ejection fraction in 40% range. He went into volume ove rload secondary to tachyarrhythmia. 9. Elevated troponin, secondary to demand ischemia. 10. Hypertension. 11. Hyperlipidemia. 12. History of seizure disorder. 13. Stage 2 decubitus ulcer over the gluteal region, present on admission. 14. History of carotid stenosis, status post recent right carotid endarterectomy. 15. Coronary artery disease. 16. Chronic pain syndrome. 17. Moderate protein-calorie malnutrition. 18. Fecal impaction. 19. Generalized weakness. Total time coordinating the discharge of this patient was 35 minutes.
== END 2018-03-11 20:35 | disposition hospice, inpatient (51) | DRG 640 ==
LOC: ERS 13:14 → IMCU/EMU 16:27 → 2NO 03-07 15:41 → IMCU/EMU 03-08 21:57
PROVIDERS: ADMIT Internal Medicine; ATTEND Internal Medicine
PROC: 07DR0ZX Extraction of Iliac Bone Marrow, Open Approach, Diagnostic (ICD-10-PCS; 2018-03-07)
PROC: 5A09457 Assistance with Respiratory Ventilation, 24-96 Consecutive Hours, Continuous Positive Airway Pressure (ICD-10-PCS; principal; 2018-03-09)
PROC: 30233N1 Transfusion of Nonautologous Red Blood Cells into Peripheral Vein, Percutaneous Approach (ICD-10-PCS; 2018-03-09)
DX: E87.1 Hypo-osmolality and hyponatremia (principal); J96.01 Acute respiratory failure with hypoxia; J69.0 Pneumonitis due to inhalation of food and vomit; I50.23 Acute on chronic systolic (congestive) heart failure; C90.00 Multiple myeloma not having achieved remission; D61.818 Other pancytopenia; I24.8 Other forms of acute ischemic heart disease; E44.0 Moderate protein-calorie malnutrition; M48.54XA Collapsed vertebra, not elsewhere classified, thoracic region, initial encounter for fracture; N17.9 Acute kidney failure, unspecified; I13.0 Hypertensive heart and chronic kidney disease with heart failure and stage 1 through stage 4 chronic kidney disease, or unspecified chronic kidney disease; R78.81 Bacteremia; E87.2 Acidosis; I25.10 Atherosclerotic heart disease of native coronary artery without angina pectoris; R32 Unspecified urinary incontinence; E83.52 Hypercalcemia; I48.91 Unspecified atrial fibrillation; E87.8 Other disorders of electrolyte and fluid balance, not elsewhere classified; G40.909 Epilepsy, unspecified, not intractable, without status epilepticus; L89.302 Pressure ulcer of unspecified buttock, stage 2; G89.4 Chronic pain syndrome; K56.41 Fecal impaction; D89.2 Hypergammaglobulinemia, unspecified; F17.210 Nicotine dependence, cigarettes, uncomplicated; M89.58 Osteolysis, other site; E78.5 Hyperlipidemia, unspecified; I08.3 Combined rheumatic disorders of mitral, aortic and tricuspid valves; D63.0 Anemia in neoplastic disease; N31.9 Neuromuscular dysfunction of bladder, unspecified; N18.3 Chronic kidney disease, stage 3 (moderate); Z98.890 Other specified postprocedural states; Z68.28 Body mass index [BMI] 28.0-28.9, adult; Z87.828 Personal history of other (healed) physical injury and trauma; Z87.81 Personal history of (healed) traumatic fracture; J44.9 Chronic obstructive pulmonary disease, unspecified
CPT/HCPCS: 20225; 36415; 36430; 71045; 71275; 72146; 72148; 74018; 74230; 77012; 80048; 80053; 80076; 80202; 81003; 81015; 82232; 82306; 82553; 82570; 82607; 82746; 82805; 83605; 83735; 83880; 83883; 83930; 83935; 83970; 84100; 84132; 84153; 84156; 84165; 84166; 84300; 84443; 84484; 85007; 85025; 85027; 85046; 85049; 85060; 85097; 85300; 85362; 85379; 85384; 85610; 85730; 86850; 86900; 86901; 87040; 87077; 87086; 87149; 87186; 88184; 88237; 88264; 88280; 88305; 88313; 88341; 88342; 88360; 93005; 93010; 93306; 94640; 94660; 94760; 96365; 96366; 96368; 96375; A4216; C9113; G8978-GP-CM; G8978-GP-CN; G8979-GP-CK; G8987-GO-CK; G8987-GO-CM; G8988-GO-CK; G8996-GN-CJ; G8996-GN-CM; G8997-GN-CJ; G8997-GN-CL; J0282; J0692; J1100; J1160; J1644; J1940; J1956; J2060; J2250; J2270; J2543; J2920; J3010; J3370; J3475; J3489; J7050; J7070; J7620; J8540; P9016; Q0162